=== PATIENT | male | born 1970 | race African-American/Black ===

== ENCOUNTER 2019-08-15 13:04 | Inpatient (IN) | payer SELFPAY ==
--- NOTE | 2019-08-15 13:44 | CT ---
CT HEAD WITHOUT CONTRAST: Date: 08/15/19 INDICATION: Stroke alert. Aphasia. Right arm weakness. FINDINGS: There are no comparison studies. FINDINGS: There is a focal area of high attenuation involving the head of the caudate on the right which measur es approximately 1.0 cm. Hounsfield units are recorded in the 60 range. This would be consistent with an acute hematoma. There is abnormal lucency seen in the left frontal lobe cortex extending to the central sulcus consis tent with cytotoxic edema and subacute cortical infarct. There are focal areas of low attenuation involving the deep white matter of the frontal lobes which c ould represent chronic ischemic change. Acute lacunar infarcts cannot be excluded. The paranasal sinuses and mastoids are clear. IMPRESSION: 1. No evidence of acute hemorrhage involving the head of the caudate on the right. 2. Abnormal decreased attenuation involving the cortex and subcortical region of left frontal lobe e xtending to the central sulcus consistent with subacute infarct. There is a second area of more prono unced lucency involving the left superior parietal lobe cortex probably abutting the central sulcus i n the postcentral region suggesting a subacute parietal lobe cortical infarct. 3. There are lucencies seen in the deep white matter of both frontal lobe which could represent welcome wagon host/hostess katja ischemic change or areas of lacunar infarcts. Recommend further evaluation with MRI to better define the areas of infarct. Findings relayed to Dr. Domínguez. CODE CR. POS: [facility]
--- NOTE | 2019-08-15 13:45 | RAD ---
PORTABLE CHEST: Date: 08/15/19 HISTORY: Stroke symptoms. FINDINGS: Heart size and mediastinum are within normal limits. Lungs are clear of any infiltrates. No significa nt bony findings. IMPRESSION: No active intrathoracic disease. POS: [facility]
[2019-08-15] MEDS ORDERED: Labetalol HCl 100 MG/20 ML VIAL SLOW IVP PRN (14:01)
[2019-08-15] MEDS ORDERED: Docusate 100 MG CAP PO PRN (14:01)
[2019-08-15] MEDS ORDERED: Acetaminophen 650 MG Suppository PR PRN (14:01)
[2019-08-15] MEDS ORDERED: Morphine 2 MG/ML SYRINGE SLOW IVP PRN (14:01)
[2019-08-15] MEDS ORDERED: Morphine 4 MG/ML VIAL SLOW IVP PRN (14:01)
[2019-08-15] MEDS ORDERED: diphenhydrAMINE 50 MG/ML VIAL IVP PRN (14:01)
[2019-08-15] MEDS ORDERED: diphenhydrAMINE 50 MG CAP PO PRN (14:01)
[2019-08-15] MEDS ORDERED: Ondansetron PF 4 MG/2 ML Vial IVP PRN (14:01)
[2019-08-15 14:07] LABS: #Basophils 0.1 thou/uL (0.0-0.2); #Eosinphils 0.1 thou/uL (0.0-0.7); #Lymphocytes 2.9 thou/uL (1.20-3.40); #Neutrophils 5.2 thou/uL (1.40-6.50); %Basophils 0.7 % (0.0-1.0); %Eosinophils 0.7 % (0.0-10.0); %Lymphocytes 31.3 % (21.0-51.0); %Monocytes 10.9 % (0.0-10.0); %Neutrophils 56.4 % (42.0-75.0); Mean Corpuscular HGB CONC 33.7 g/dL (32.0-36.0); Mean Corpuscular Hemoglobin 29.6 pg (27.0-31.0); Mean Corpuscular Volume 87.6 fL (78.0-98.0); Platelet Count 301 thou/uL (130-400); RBC Distribution Width 13.9 % (11.5-14.5); Red Blood Cell (RBC) Count 5.76 mill/uL (4.70-6.10); White Blood Cell (WBC) Count 9.3 thou/uL (4.8-10.8)
[2019-08-15 14:30] LABS: ALT (SGPT) 8 U/L (8-55); AST (SGOT) 17 U/L (5-34); Albumin 4.1 g/dL (3.5-5.0); Alkaline Phosphatase 76 U/L (40-110); Anion Gap 13 mmol/L (10-20); BUN (Urea Nitrogen) 5 mg/dL (8.9-20.6); Bilirubin, Total 0.5 mg/dL (0.2-1.2); Calc. Creatinine Clearance 0 mL/min (70-130); Calcium 9.9 mg/dL (7.8-10.44); Carbon Dioxide 29 mmol/L (22-29); Chloride 101 mmol/L (98-107); Estimated GFR-MDRD 77; Globulin 3.5 g/dL (2.4-3.5); Glucose 78 mg/dL (70-105); Potassium 3.6 mmol/L (3.5-5.1); Protein, Total 7.6 g/dL (6.0-8.3); Sodium 139 mmol/L (136-145)
[2019-08-15 14:47] LABS: CKMB 2.4 ng/mL (0-6.6)
[2019-08-15 15:13] LABS: INR-International Normal Ratio 0.9; Prothrombin Time 12.5 SEC (12.0-14.7)
[2019-08-15] MEDS: Sodium Chloride 0.9% 1,000 ML IV SCH (15:21)
[2019-08-15] MEDS: niCARdipine 25 MG in Sodium Chloride 0.9% 250 ML 240 ML IVPB SCH ×2 (15:22→20:41)
[2019-08-15] MEDS: niMODipine 30 MG CAP PO SCH ×2 (17:27→21:00)
[2019-08-15] MEDS: Pantoprazole 40 MG VIAL IVP SCH (21:00)
[2019-08-15] MEDS: Famotidine 20 MG TAB PO SCH (21:00)
[2019-08-15] MEDS ORDERED: niCARdipine 50 MG in Sodium Chloride 0.9% 250 ML 230 ML IVPB SCH (21:45)
[2019-08-15] MEDS ORDERED: Acetaminophen/Codeine 30-300mg Tablet PO PRN (21:47)
[2019-08-15] MEDS: Acetaminophen 325 MG TAB PO PRN (21:50)
--- NOTE | 2019-08-15 22:51 | CT ---
CT HEAD WITHOUT IV CONTRAST COMPARISON: 08/15/2019 HISTORY: Decreasing neuro status. Intraparenchymal hemorrhage. TECHNIQUE: Axial CT imaging at 5 mm intervals from vertex through skull base without contrast FINDINGS: The small focal area of increased density related to parenchymal hemorrhage in the region of the body of the right caudate is again seen measuring 12 mm. Previous measurement was 11 mm. Differences in measurement may be related to slice selection and angle of the gantry. No new intraparenchymal or ext ra-axial hemorrhage is identified. Previously noted low-attenuation area within the posterior left frontal lobe is again seen slightly l arger in size may related to evolutionary changes in infarction in the posterior division of the left middle cerebral artery. There is effacement of the cerebral sulci in this region, findings are m ost compatible with a subacute infarction. There is no midline shift present. There is mild effacement of the occipital horn left lateral ventri martell due to edema in the posterior left frontal lobe. No other interval change. IMPRESSION: 1. Stable small precarinal hematoma in the right caudate. 2. Persistent low-attenuation area in the posterior left frontal lobe which is mildly larger in size compared to prior exam likely related to evolutionary changes in a subacute infarction in the posterior division of the left middle cerebral artery territory. There is persistent edema and sulcal effacement as well as mild mass effect on the occipital horn left lateral ventricle. MRI may be helpful for further delineation of the degree of infarction.
--- NOTE | 2019-08-15 23:08 | CON ---
DATE OF CONSULTATION: PRIMARY CARE PHYSICIAN: The patient currently does not have a primary care physician. REASON FOR CONSULTATION: Aid in medical management. REASON FOR ADMISSION: Right-sided weakness and intracranial hemorrhage. HISTORY OF PRESENT ILLNESS: The history of present illness is very limited as the patient has significant aphasia and can answer primarily yes no questions. His family has since left the hospital. Mr. Carballo was in his usual state of health until yesterday or earlier today that is when he started having sudden weakness in his right upper extremity as well as right leg. Apparently, he has been having headache off and on for the last several days according to ER notes. He denies any chest pain through yes no questioning and no shortness of breath, no nausea, no vomiting, no leg pain or swelling. When he was evaluated in the ER, he was found to have an intracranial hemorrhage as well as areas that appear like an ischemic infarct as well. The patient has been admitted by the Neurosurgery team into the ICU where he has been placed on a Cardene drip. REVIEW OF SYSTEMS: An adequate review of systems is unobtainable due to the patient's aphasia. PAST MEDICAL HISTORY: Negative. PAST SURGICAL HISTORY: No surgeries. ALLERGIES: NO KNOWN DRUG ALLERGIES. SOCIAL HISTORY: The patient is a smoker of about a pack a day. Also drinks occasionally. FAMILY HISTORY: Significant for hypertension. MEDICATIONS: Prior to admission, none. PHYSICAL EXAMINATION: GENERAL: The patient is alert and oriented. He appears to be in no acute distress. He is sitting up in the bed. VITAL SIGNS: On admission, his blood pressure was 184/110, heart rate 85, respiratory rate of 18, and he was afebrile. HEENT: Pupils are equal, round, and reactive. Extraocular muscles are intact. Sclerae anicteric. Throat, no erythema, no exudates. NECK: No adenopathy, no bruits. LUNGS: Clear to auscultation. There is no wheezing, no rales, no rhonchi. CARDIOVASCULAR: He has a normal S1, S2. No S3 or S4. He does have a grade 2/6 systolic murmur. ABDOMEN: Soft. It is nontender, nondistended. Positive for bowel sounds. No rebound. No guarding. No organomegaly. EXTREMITIES: There is no clubbing, cyanosis. No edema. NEUROLOGIC: He has significant weakness in the right upper extremity. He is unable to lift it significantly against gravity. He has an extremely weak facilities director strength in the right leg, it is also weak, but he can lift it against gravity, but it is much weaker than that of the left and he has significant aphasia and difficulty with word finding and some evidence of fluent aphasia. LABORATORY DATA: Sodium is 139, potassium 3.6, chloride is 101, CO2 is 29, BUN of 5, creatinine 1.21, glucose is 78. Troponin is less than 0.039. White blood cell count is 9.3, hemoglobin 17, hematocrit is 50.4, and platelet count is 301. INR is 0.09. IMAGING: CT scan once again showed possible hemorrhage in the right caudate and a left frontal lobe cortex, acute ischemic infarct. ASSESSMENT: This is a pleasant 49-year-old gentleman with a hemorrhagic as well as ischemic infarct. He has been admitted to the ICU and we have been asked to help with medical management. It appears as if his major chronic medical illness is hypertension, which it appears as if it has not been treated. I agree with the Ye drip and we can likely introduce a low-dose beta-vicky such as carvedilol in the a.m. and consider transitioning the nimodipine to amlodipine. We will also get a lipid panel, hemoglobin A1c, echocardiogram and carotid Dopplers. Otherwise, we will continue as per Neurosurgery recommendations. Job ID: [id number]
[2019-08-16] MEDS: niMODipine 30 MG CAP PO SCH ×6 (01:21→23:18)
[2019-08-16] MEDS: Acetaminophen 325 MG TAB PO PRN (01:22)
--- NOTE | 2019-08-16 03:33 | HP ---
REASON FOR EVALUATION: The patient admitted from the Emergency Department with right-sided weakness and speech difficulty. HISTORY OF PRESENT ILLNESS: Mr. Carballo is a 49-year-old gentleman with a history of TIA within the last three months, who comes to the Emergency Department with right-sided weakness and speech difficulty. This time it is not clearing up. The onset was abrupt today. The patient denies any pain. The left side is working well. He communicates in a halting fashion and cannot give a full history on his own. Since admission, nursing reports further weakness in the right arm - now unable to lift it. PAST MEDICAL HISTORY: Hypertension, previous transient ischemic event. PAST SURGICAL HISTORY: None is reported. ALLERGIES: NO KNOWN DRUG ALLERGIES. CURRENT MEDICATIONS: None. FAMILY HISTORY: The patient's four children were healthy according to his . No heritable diseases. SOCIAL HISTORY: Family reports alcohol use daily and smoking. His smoking is about one pack per day. REVIEW OF SYSTEMS: Review of symptoms otherwise unobtainable. PHYSICAL EXAMINATION: I saw Claude Carballo in his ICU room. VITAL SIGNS: Current vitals reveal a temperature of 98.5 degrees Fahrenheit and blood pressure of 135/67. GENERAL: As I entered the room, Mr. Carballo is awake. He has good speech comprehension. He is dysphasic with an expressive more so than a receptive deficit. Attempts to get a phrase or two out that are appropriate. Other times he cannot find the correct word. He makes some paraphasic errors. His cranial nerves are working well. He has weakness especially in the arm and hand (good tone, involuntary motion, but no purposeful motion of right arm) as well as the lower face greater than the leg on the right side. Good sensation in the legs. He says his sensation in the right arm is decreased compared to the left. The face seems to be symmetrically sensate. IMAGING STUDIES: I reviewed imaging and followup CT imaging of the brain. This revealed a 1 cm oval area of hemorrhage in the right caudate head unrelated to his new deficit. There is hypodensity in the left MCA distribution as well, which is an ischemic stroke. IMPRESSION: Ischemic stroke, left hemisphere, tiny hemorrhagic lesion, right caudate head. Neurosurgery team was consulted for the hemorrhagic lesion, which is asymptomatic. Given his stuttering neurologic deficit involving the right side of the body, I will loosen the blood pressure restrictions and have a target between 130 and 160. Unfortunately, he is not a candidate for thrombolytic agent given the hemorrhage. I will defer to Neurology about regarding workup of his carotid arteries and his heart valves for sources of continued ischemic insults. We will repeat the scan in the morning if the hemorrhagic lesion has no different then we will transfer Mr. Carballo to the care of the Medical and Neurology teams. Job ID: [id number] MTDD
[2019-08-16] MEDS: Sodium Chloride 0.9% 1,000 ML IV SCH ×2 (04:00→17:12)
[2019-08-16 04:10] LABS: Hemoglobin A1c 5.5 % (4.0-6.0)
[2019-08-16 04:12] LABS: #Basophils 0.1 thou/uL (0.0-0.2); #Eosinphils 0.1 thou/uL (0.0-0.7); #Lymphocytes 2.7 thou/uL (1.20-3.40); #Neutrophils 5.5 thou/uL (1.40-6.50); %Basophils 0.6 % (0.0-1.0); %Eosinophils 0.9 % (0.0-10.0); %Lymphocytes 28.9 % (21.0-51.0); %Monocytes 10.5 % (0.0-10.0); %Neutrophils 59.1 % (42.0-75.0); Hemoglobin 15.5 g/dL (14.0-18.0); Mean Corpuscular HGB CONC 33.7 g/dL (32.0-36.0); Mean Corpuscular Hemoglobin 29.6 pg (27.0-31.0); Mean Corpuscular Volume 87.6 fL (78.0-98.0); Platelet Count 301 thou/uL (130-400); RBC Distribution Width 13.7 % (11.5-14.5); Red Blood Cell (RBC) Count 5.25 mill/uL (4.70-6.10); White Blood Cell (WBC) Count 9.3 thou/uL (4.8-10.8)
[2019-08-16 04:29] LABS: Anion Gap 9 mmol/L (10-20); BUN (Urea Nitrogen) 5 mg/dL (8.9-20.6); Calc. Creatinine Clearance 78 mL/min (70-130); Calcium 9.4 mg/dL (7.8-10.44); Carbon Dioxide 28 mmol/L (22-29); Cardiac Risk 3.9 (Less than 4.5); Chloride 107 mmol/L (98-107); Cholesterol 151 mg/dl (< 200 Desired); Estimated GFR-MDRD 90; Glucose 99 mg/dL (70-105); HDL Cholesterol 39 mg/dL (>60 Neg Risk); LDL Cholesterol, Calculated 99 mg/dL; Potassium 3.3 mmol/L (3.5-5.1); Sodium 141 mmol/L (136-145); Triglycerides 64 mg/dL (Less than 150)
[2019-08-16 07:29] LABS: Alcohol Less than 10 mg/dL (Less than 10); Salicylate Less than 8.0 mg/dL (15.0-30.0)
--- NOTE | 2019-08-16 08:27 | PRG ---
DATE OF SERVICE: 08/16/2019 I saw Claude Carballo in the ICU this morning. I saw him yesterday after some weakness developed to the right upper extremity. I am seeing him this morning and he feels the same weakness that he did yesterday evening. A third CT scan has been done and I have reviewed it. Mr. Carballo complains difficulty with speech and right hemiparesis, much of the same as yesterday. Among the vital signs, I see 98.8 as the highest temperature recorded. The blood pressures have ranged between 110-130s. On examination, Mr. Carballo has an expressive dysphasia. He has arm and lower face weakness greater than leg weakness on the right side. These are stable from my examination yesterday evening. There is decreased sensation on the right compared to the left as well. I reviewed CT imaging of the brain. The 1 cm hyperdense area in the caudate head on the right side is stable. This hemorrhage has not increased in its size since his evaluation in the emergency department yesterday. The hypodensities on the left hemisphere are maturing. This is a MCA distribution stroke, which he suffered. Neurology is offering guidance on the ischemic portion of the disease and working him up to prevent of any future strokes. His hemorrhage makes him less of a candidate for any blood thinners. If absolutely necessary, baby aspirin could be started. I would recommend keeping the blood pressure between 130 and 160 in case there is a fixed stenotic lesion in the left MCA distribution on the left side and we have to perfuse it to prevent more brain loss. Overall, Mr. Carballo does not need any neurosurgical intervention. The hemorrhage is the least symptomatic of his problems and he will not require invasive management thereof. The Neurology and Medical team can manage his ischemic strokes without the input of Neurosurgery. We will sign off. Job ID: [id number] MTDD
[2019-08-16] MEDS: Famotidine 20 MG TAB PO SCH ×2 (08:45→23:18)
[2019-08-16] MEDS: Pantoprazole 40 MG VIAL IVP SCH ×2 (08:45→23:18)
--- NOTE | 2019-08-16 08:48 | CT ---
PRELIMINARY REPORT/[facility]/EMERGENCY AFTER HOURS PROCEDURE: PROCEDURE: CT Head without Contrast . HISTORY: Follow-up subdural. TECHNIQUE: Axial images were performed without the administration of IV contrast with or without mult iplanar reformations . COMPARISON: None . FINDINGS: 6 x 9 mm sub-ependymal or interventricular hemorrhage anterior horn RIGHT lateral ventricle. 3.7 cm area of decreased attenuation consistent with edema involving LEFT temporal and insular lobe e xtending up to the parietal lobe could represent subacute infarct, cerebritis, or area of parenchymal contusion.. No other intracranial hemorrhage, mass, or acute stroke. No midline shift. No hydrocephalus. Mild periventricular decreased attenuation could represent white matter disease or old microischemic changes. No acute skull or scalp abnormality. Visualized sinuses and mastoids are clear. IMPRESSION: Subcentimeter subependymal or interventricular hemorrhage RIGHT anterior horn lateral ventricle. Edema LEFT cerebrum with differential above. Periventricular old microischemic changes versus white matter disease. ELECTRONICALLY SIGNED BY: Arturo Lopez MD Aug 16, 2019 5:15:15 AM INTAKE NURSE This report is intended for review by the ordering physician only, in accordance of law. If you recei ve this report in error, please call [facility] at [phone]. FINAL REPORT HEAD CT WITHOUT CONTRAST: Date: 08/16/19 COMPARISON: 08/15/19. HISTORY: Status post craniotomy. FINDINGS/IMPRESSION: Stable right intraventricular/subependymal hemorrhage, which also involves the right caudate nucleus. No new areas of parenchymal hemorrhage appreciated. There are continued evolutionary changes involvi ng a subacute left MCA distribution infarction. Hyperattenuation of the left M1 segment is noted. This report is in agreement with the initial report by [facility]. POS: [facility]
--- NOTE | 2019-08-16 08:51 | ULT ---
BILATERAL CAROTID DUPLEX ULTRASOUND: HISTORY: Stroke TECHNIQUE: Grayscale, imaging of the right carotid was performed. FINDINGS: Incomplete images of the right common carotid artery performed. The remainder the carotid and vertebr al arteries cannot be assessed due to patient refusal. IMPRESSION: Incomplete examination due to patient refusal.
[2019-08-16] MEDS: Carvedilol 3.125 MG TAB PO SCH ×2 (09:23→17:11)
--- NOTE | 2019-08-16 10:01 | CON ---
DATE OF CONSULTATION: HISTORY OF PRESENT ILLNESS: Mr. Carballo is a 49-year-old male. He says he has hypertension. He presented with right arm weakness and dysarthria. He has had a TIA in the past. He says he knew he had blood pressure issues, but would not take any medicine for that. FAMILY HISTORY: Negative for lung disease in early age. SOCIAL HISTORY: He is a daily drinker. Daily smoker, pack a day. REVIEW OF SYSTEMS: Otherwise negative. He has not regained any of his right upper extremity strength. PHYSICAL EXAMINATION: VITAL SIGNS: Heart rate 60, blood pressure 140/80, respiratory rate is 20, oximetry is 97. HEAD AND NECK: Unremarkable. LUNGS: Clear. HEART: Regular rhythm. S1 and S2 are normal. ABDOMEN: Soft and nontender. EXTREMITIES: Without clubbing, cyanosis, or edema. DIAGNOSTIC STUDIES: Carotid Dopplers were done. Apparently, the patient refused to complete the study. IMPRESSION: CVA with dysarthria and right upper extremity paresis. He is not complying with the workup. CT imaging reviewed by Dr. Cody showed an oval area of hemorrhage in the right caudate head and left middle cerebral artery distribution changes consistent with a thrombotic event. He is protecting his airway adequately at this point in time. If Neurosurgery agrees, he could probably be transferred out of the Critical Care Unit to the Stroke Unit. His medical compliance will likely be an issue in the future based on his behavior in the hospital. Job ID: [id number] 70 minute consult with 50% of time spent on unit coordinating care [facility]
[2019-08-16 10:53] LABS: Amphetamine Not Detected (NotDetected); Barbiturates Screen Not Detected (NotDetected); Benzodiazepine Screen Not Detected (NotDetected); Cocaine Metabolite Screen Not Detected (NotDetected); Medtox Control Line Valid? VALID (VALID); Medtox Reader # READER 4; Methadone Not Detected (NotDetected); Methamphetamine Not Detected (NotDetected); Opiate Screen Not Detected (NotDetected); Oxycodone Screen Not Detected (NotDetected); Phencyclidine (PCP) Not Detected (NotDetected); THC/Cannabinoid Screen Not Detected (NotDetected); Tricyclic Screen Not Detected (NotDetected)
--- NOTE | 2019-08-16 12:15 | CON ---
DATE OF TELEMEDICINE CONSULTATION: 08/16/2019 CHIEF COMPLAINT: Difficulty with speaking. HISTORY OF PRESENT ILLNESS: History was given by his . The patient normally has migraine headaches every six months with photophobia, phonophobia, and he used to throw up initially not anymore. This is mostly a bifrontal headache. Three days before this incident, he had migraine, which continued and did not subside. He could not make a sentence yesterday, so she brought him to the hospital. The patient has been under stress because his got a job and he has not, and he is trying to get a job. He also has weakness on the right side along with some numbness. PREVIOUS MEDICAL HISTORY: Positive for hypertension and migraines. PREVIOUS SURGICAL HISTORY: None. FAMILY HISTORY: He has one brother and a sister, and they do not know their health issues. Mother at 60 from cancer. Father in his 60s from a stroke. SOCIAL HISTORY: He drinks. He used to be a heavy drinker for 19 years. He used to drink 30 pack per day. Now, he has been drinking five beers per day for the last three months. He smokes 1 pack a day for 40 years. He is unemployed and he was around [employer] for 10 years. REVIEW OF SYSTEMS: Unable to obtain due to the aphasia. LABORATORY DATA: His current lab workup; white count 9.3, hemoglobin 15.5, hematocrit 46, and platelet count 301. Chemistry; sodium 141, potassium 3.3, chloride 107, bicarb 28, BUN 5, and creatinine 1.06. Hemoglobin A1c is 5.5. Cholesterol and lipid profile within normal limits. CT of the head showed right-sided small basal ganglia bleed about 3.6 x 9 mm subependymal or intraventricular hemorrhage, anterior horn right lateral ventricle is the size of the bleed and on the left side, he has a 3.7 cm area of decreased attenuation consistent with edema involving left temporal and insular lobe extending to the parietal lobe, could be a subacute infarct cerebritis or area of parenchymal contusion. MEDICATIONS: Noted per chart. PHYSICAL EXAMINATION: VITAL SIGNS: Temperature 98 degrees, heart rate 56, blood pressure 145/73, and respiratory rate is 16. GENERAL APPEARANCE: Well-built, well-nourished man, who is aphasic, unable to talk. CHEST: Clear vesicular breathing. CARDIOVASCULAR: S1 and S2 heard. No murmurs. ABDOMEN: Soft. NEUROLOGIC: Higher intellectual functions, he is unable to talk due to aphasia , but he is cooperative, able to follow commands. Cranial nerves; pupils 4 mm, reactive to light. He has left-sided facial droop. Tongue is midline. Normal elevation of palate. Normal hearing bilaterally. Speech, expressive aphasia. Motor exam, bulk normal. Tone normal. Strength 5/5 on the left side. On the right side, he had 0/5 strength in the right upper extremity. In the right lower extremity, he had 4/5 strength for flexors. Extensors were 3/5. Deep tendon reflexes 3+ throughout. Sensory exam, he had numbness of the right face, arm, and leg. Cerebellar, unable to evaluate on the right side due to presence of weakness. IMPRESSION: The patient is a 49-year-old man, who presents with a small intraventricular hemorrhage on the right side and likely left MCA distribution stroke. At this time, he is waiting for his MRI. His carotid Doppler study was completed and his carotid Dopplers do not show any atherosclerosis, but he has mild 50% to 69% stenosis of the left common carotid artery. Diagnosis is most consistent with stroke and intracerebral hemorrhage. Treatment recommendations, please complete stroke workup including echocardiogram and I will request a CT angio of the head and neck to understand the location of his stroke. This is most likely a left middle cerebral artery distribution stroke, but the patient also has a hemorrhage, which creates a difficulty with antiplatelet agents. RECOMMENDATIONS: Please wait for resolution of the bleed prior to starting antiplatelet agents. He will probably benefit with the low-dose aspirin. We will follow up the patient again tomorrow. Job ID: [id number] [facility]
[2019-08-16 12:17] VITALS: BMI 21.6
--- NOTE | 2019-08-16 12:44 | PDOC.HOSPP ---
- Subjective Encounter Date: 08/16/19 Encounter Time: 09:30 Subjective: awake, is eating ice cream, moves his left extremities and right leg, is unable to move/lift right UE has difficulty speaking/finding words at bedside - Objective Vital Signs & Weight: Vital Signs (12 hours) Temp Pulse Pulse BP BP Pulse Ox Pulse Ox 08/16/19 11:00 65 68 134/76 137/89 98 08/16/19 08:00 98 08/16/19 07:00 98.3 F 08/16/19 04:00 98.4 F Pulse Ox 08/16/19 11:00 97 08/16/19 08:00 08/16/19 07:00 08/16/19 04:00 Weight Admit Weight 146 lb Weight 146 lb 9.718 oz Most Recent Monitor Data Heart Rate from ECG 62 NIBP 151/89 NIBP BP-Mean 109 Respiration from ECG 18 SpO2 98 I&O: 08/15/19 08/16/19 08/17/19 06:59 06:59 06:59 Intake Total 2128.1 880 Output Total 3915 950 Balance -1786.9 -70 Result Diagrams: 08/16/19 03:35 08/16/19 03:35 Hospitalist ROS - Medication Medications: Active Medications Generic Name Dose Route Start Last Admin Trade Name Fredanny PRN Reason Stop Dose Admin Acetaminophen 650 mg 08/15/19 14:01 08/16/19 01:22 Tylenol PO 650 mg Q4H PRN Administration Headache/Fever Or Mild Pain Carvedilol 3.125 mg 08/16/19 08:00 08/16/19 09:23 Coreg PO 3.125 mg BID-WM LEIDY Administration Famotidine 20 mg 08/15/19 21:00 08/16/19 08:45 Pepcid PO 20 mg Q12HR LEIDY Administration Sodium Chloride 1,000 mls @ 75 mls/hr 08/15/19 14:15 08/16/19 04:00 Normal Saline 0.9% IV 1,000 mls .[id number] LEIDY Administration Nicardipine HCl 50 mg/ Sodium 250 mls @ 25 mls/hr 08/15/19 21:45 08/16/19 01: 22 Chloride IVPB 250 mls INF LEIDY Administration Protocol 5 MG/HR Nimodipine 60 mg 08/15/19 17:00 08/16/19 12:06 Nimodipine PO 60 mg Q4HR LEIDY Administration Pantoprazole Sodium 40 mg 08/15/19 21:00 08/16/19 08:45 Protonix IVP 40 mg Q12HR LEIDY Administration - Exam General Appearance: awake alert Eye: PERRL, anicteric sclera ENT: no oropharyngeal lesions, moist mucosa Neck: supple, no JVD Heart: RRR, murmur present Respiratory: no wheezes, no rales Gastrointestinal: soft, non-tender, non-distended, normal bowel sounds Extremities: no cyanosis, no edema Neurological: speech deficit Neurological - other findings: right hemiparesis, Hosp A/P (1) Acute CVA (cerebrovascular accident) Code(s): I63.9 - CEREBRAL INFARCTION, UNSPECIFIED Status: Acute (2) ICH (intracerebral hemorrhage) Code(s): I61.9 - NONTRAUMATIC INTRACEREBRAL HEMORRHAGE, UNSPECIFIED Status: Acute Qualifiers: Intracerebral hemorrhage etiology: nontraumatic Cerebral hemorrhage location: cerebral hemisphere, subcortical portion Laterality: right Qualified Code(s): I61.0 - Nontraumatic intracerebral hemorrhage in hemisphere, subcortical (3) HTN (hypertension) Code(s): I10 - ESSENTIAL (PRIMARY) HYPERTENSION Status: Chronic Qualifiers: Hypertension type: essential hypertension Qualified Code(s): I10 - Essential (primary) hypertension (4) Dyslipidemia Code(s): E78.5 - HYPERLIPIDEMIA, UNSPECIFIED Status: Chronic (5) Tobacco abuse Code(s): Z72.0 - TOBACCO USE Status: Chronic (6) Alcohol abuse Code(s): F10.10 - ALCOHOL ABUSE, UNCOMPLICATED Status: Chronic - Plan is on coreg, pepcid/protonix, nimodepine, gentle iv hydration december to medical floor has left MCA cva with right hemiparesis with complete plegia of Right UE, has strength of around 3-4/[address] shows right caudate bleed-stable echo, has murmur+ uds is -ve hemo/neurostable with no worsoning since admission december care to hospitalist and stroke unit Appreciate help from all consults
--- NOTE | 2019-08-16 13:53 | CT ---
CTA of the head/neck with IV contrast and 3-D reformatted imaging. DATE: 08/16/2019 11:43 AM HISTORY: CVA COMPARISON: None FINDINGS: Right: CCA: No significant stenosis ICA:Mild scattered calcification without high-grade stenosis MCA:No significant stenosis. RC:Diminutive A1 segment with right A2 segment receiving supply via the anterior communicating arter y. REMOTE ENCODING OPERATIONS SUPERVISOR:No significant stenosis. LEFT: CCA: No significant stenosis ICA:Mild scattered calcification without high-grade stenosis MCA:There is incomplete contrast opacification of the posterior sylvian branch of the left MCA. The l eft M1 is patent RC:No significant stenosis. REMOTE ENCODING OPERATIONS SUPERVISOR:No significant stenosis. Vertebrobasilar System: Left Vertebral:Proximal left vertebral is not well visualized for comment. Otherwise, imaged aspects reveal no high-grade stenosis. Right Vertebral:No significant stenosis. Basilar:No significant stenosis. Interval temporal evolution of subacute infarction of the posterior division left MCA territory. This is superimposed on multifocal white matter hypoattenuation compatible with microvascular ischemic disease. Hyperdensity of the right caudate nucleus is redemonstrated, without significant interval si ze increase. IMPRESSION: Diminutive contrast of the left MCA posterior sylvian branch. This corresponds to the vascular territ ory of evolving, subacute infarction.
[2019-08-17] MEDS: niMODipine 30 MG CAP PO SCH ×6 (02:03→22:10)
[2019-08-17] MEDS: hydrALAZINE 20 MG/ML VIAL SLOW IVP PRN ×2 (02:10→11:28)
[2019-08-17] MEDS: Sodium Chloride 0.9% 1,000 ML IV SCH ×2 (04:29→22:10)
[2019-08-17 07:56] LABS: Anion Gap 11 mmol/L (10-20); BUN (Urea Nitrogen) 5 mg/dL (8.9-20.6); Calc. Creatinine Clearance 85 mL/min (70-130); Calcium 9.3 mg/dL (7.8-10.44); Carbon Dioxide 26 mmol/L (22-29); Chloride 105 mmol/L (98-107); Estimated GFR-MDRD Greater than 90; Glucose 84 mg/dL (70-105); Potassium 3.5 mmol/L (3.5-5.1); Sodium 138 mmol/L (136-145)
[2019-08-17] MEDS: Carvedilol 3.125 MG TAB PO SCH ×2 (09:19→17:42)
[2019-08-17] MEDS: Famotidine 20 MG TAB PO SCH ×2 (09:20→22:10)
[2019-08-17] MEDS: Pantoprazole 40 MG VIAL IVP SCH ×2 (09:21→22:10)
--- NOTE | 2019-08-17 12:16 | PDOC.HOSPP ---
- Subjective Encounter Date: 08/17/19 Encounter Time: 09:00 Subjective: is moving his right UE a bit this am, freely moves right sided extremities speech is a bit fluent today no headache or nausea ate his breakfast - Objective Vital Signs & Weight: Vital Signs (12 hours) Temp Pulse Resp BP BP Pulse Ox 08/17/19 11:49 98.2 F 53 L 16 167/88 H 97 08/17/19 11:28 51 L 167/88 H 08/17/19 09:14 142/75 H 97 08/17/19 08:00 98.3 F 61 16 142/75 H 97 08/17/19 04:21 97.8 F 61 16 156/85 H 98 08/17/19 04:00 156/85 H 08/17/19 02:10 82 08/17/19 02:06 183/101 H Weight Admit Weight 146 lb Weight 146 lb 9.718 oz Most Recent Monitor Data Heart Rate from ECG 55 NIBP 129/69 NIBP BP-Mean 89 Respiration from ECG 19 SpO2 97 I&O: 08/16/19 08/17/19 08/18/19 06:59 06:59 06:59 Intake Total 2128.1 1821 Output Total 3915 2220 Balance -1786.9 -399 Result Diagrams: 08/16/19 03:35 08/17/19 07:28 Hospitalist ROS - Medication Medications: Active Medications Generic Name Dose Route Start Last Admin Trade Name Freq PRN Reason Stop Dose Admin Acetaminophen 650 mg 08/15/19 14:01 08/16/19 01:22 Tylenol PO 650 mg Q4H PRN Administration Headache/Fever Or Mild Pain Carvedilol 3.125 mg 08/16/19 08:00 08/17/19 09:19 Coreg PO 3.125 mg BID-WM LEIDY Administration Famotidine 20 mg 08/15/19 21:00 08/17/19 09:20 Pepcid PO 20 mg Q12HR LEIDY Administration Hydralazine HCl 5 mg 08/15/19 14:01 08/17/19 11:28 Apresoline SLOW IVP 5 mg Q15MIN PRN Administration SBP > 160 mmHg Sodium Chloride 1,000 mls @ 75 mls/hr 08/15/19 14:15 08/17/19 04:29 Normal Saline 0.9% IV 1,000 mls .[id number] LEIDY Administration Nicardipine HCl 50 mg/ Sodium 250 mls @ 25 mls/hr 08/15/19 21:45 08/16/19 01: 22 Chloride IVPB 250 mls INF LEIDY Administration Protocol 5 MG/HR Nimodipine 60 mg 08/15/19 17:00 08/17/19 09:20 Nimodipine PO 60 mg Q4HR LEIDY Administration Pantoprazole Sodium 40 mg 08/15/19 21:00 08/17/19 09:21 Protonix IVP 40 mg Q12HR LEIDY Administration - Exam General Appearance: awake alert Eye: PERRL, anicteric sclera ENT: no oropharyngeal lesions, moist mucosa Neck: supple, no JVD Heart: no murmur, no gallops Respiratory: no wheezes, no rales Gastrointestinal: soft, non-tender, non-distended, normal bowel sounds Extremities: no cyanosis, no edema Neurological: speech deficit Neurological - other findings: right hemiparesis improving Psychiatric: normal affect, A&O x 3 Hosp A/P (1) Acute CVA (cerebrovascular accident) Code(s): I63.9 - CEREBRAL INFARCTION, UNSPECIFIED Status: Acute (2) ICH (intracerebral hemorrhage) Code(s): I61.9 - NONTRAUMATIC INTRACEREBRAL HEMORRHAGE, UNSPECIFIED Status: Acute Qualifiers: Intracerebral hemorrhage etiology: nontraumatic Cerebral hemorrhage location: cerebral hemisphere, subcortical portion Laterality: right Qualified Code(s): I61.0 - Nontraumatic intracerebral hemorrhage in hemisphere, subcortical (3) HTN (hypertension) Code(s): I10 - ESSENTIAL (PRIMARY) HYPERTENSION Status: Chronic Qualifiers: Hypertension type: essential hypertension Qualified Code(s): I10 - Essential (primary) hypertension (4) Dyslipidemia Code(s): E78.5 - HYPERLIPIDEMIA, UNSPECIFIED Status: Chronic (5) Tobacco abuse Code(s): Z72.0 - TOBACCO USE Status: Chronic (6) Alcohol abuse Code(s): F10.10 - ALCOHOL ABUSE, UNCOMPLICATED Status: Chronic - Plan is on coreg, pepcid/protonix, nimodepine, gentle iv hydration (may dc if eating and drinking well orally) has left MCA cva with right hemiparesis, has strength of around 2-3/5 in right UE and 3-4/[address] shows right caudate bleed-stable echo shows normal ef, mod tr uds is -ve hemo/neurostable, neuro deficits are rapidly improving Appreciate help from all consults PT/OT/Speech, will need rehab if approved (not sure if he has any insurance)
[2019-08-18] MEDS: niMODipine 30 MG CAP PO SCH ×3 (00:25→08:53)
[2019-08-18] MEDS: hydrALAZINE 20 MG/ML VIAL SLOW IVP PRN ×5 (00:25→23:08)
[2019-08-18] MEDS: Famotidine 20 MG TAB PO SCH ×2 (08:53→22:13)
[2019-08-18] MEDS: Carvedilol 3.125 MG TAB PO SCH ×2 (08:53→17:12)
[2019-08-18] MEDS: Pantoprazole 40 MG VIAL IVP SCH (08:54)
[2019-08-18] MEDS: Sodium Chloride 0.9% 1,000 ML IV SCH (11:43)
--- NOTE | 2019-08-18 12:22 | PDOC.HOSPP ---
- Subjective Encounter Date: 08/18/19 Encounter Time: 10:15 Subjective: awake, oriented well was not able to ambulate due to balance issues per PT is eating well, no headache or sob - Objective Vital Signs & Weight: Vital Signs (12 hours) Temp Pulse Pulse Pulse Pulse Resp BP 08/18/19 11:48 98.5 F 54 L 16 08/18/19 09:27 58 L 58 L 60 150/80 H 08/18/19 07:58 98.6 F 59 L 16 08/18/19 04:00 98.3 F 69 16 08/18/19 01:09 08/18/19 00:25 66 BP BP BP Pulse Ox 08/18/19 11:48 140/72 98 08/18/19 09:27 139/73 159/77 H 08/18/19 07:58 139/85 93 L 08/18/19 04:00 158/83 H 96 08/18/19 01:09 155/80 H 08/18/19 00:25 Weight Admit Weight 146 lb Weight 146 lb 9.718 oz Most Recent Monitor Data Heart Rate from ECG 55 NIBP 129/69 NIBP BP-Mean 89 Respiration from ECG 19 SpO2 97 I&O: 08/17/19 08/18/19 08/19/19 06:59 06:59 06:59 Intake Total 1821 3014 300 Output Total 5630 9835 7716 Balance -208 -668 -830 Result Diagrams: 08/16/19 03:35 08/17/19 07:28 Hospitalist ROS - Medication Medications: Active Medications Generic Name Dose Route Start Last Admin Trade Name Freq PRN Reason Stop Dose Admin Acetaminophen 650 mg 08/15/19 14:01 08/16/19 01:22 Tylenol PO 650 mg Q4H PRN Administration Headache/Fever Or Mild Pain Carvedilol 3.125 mg 08/16/19 08:00 08/18/19 08:53 Coreg PO 3.125 mg BID-WM LEIDY Administration Famotidine 20 mg 08/15/19 21:00 08/18/19 08:53 Pepcid PO 20 mg Q12HR LEIDY Administration Hydralazine HCl 5 mg 08/15/19 14:01 08/18/19 00:25 Apresoline SLOW IVP 5 mg Q15MIN PRN Administration SBP > 160 mmHg Labetalol HCl 10 mg 08/15/19 14:01 08/17/19 14:49 Normodyne SLOW IVP 10 mg Q15MIN PRN Administration SBP > 140 mmHg - Exam General Appearance: awake alert Eye: PERRL, anicteric sclera ENT: no oropharyngeal lesions, moist mucosa Neck: supple, no JVD Heart: RRR, no murmur Respiratory: no wheezes, no rales Gastrointestinal: soft, non-tender, non-distended, normal bowel sounds Extremities: no cyanosis, no edema Neurological: speech deficit Neurological - other findings: right hemiparesis Psychiatric: A&O x 3 Hosp A/P (1) Acute CVA (cerebrovascular accident) Code(s): I63.9 - CEREBRAL INFARCTION, UNSPECIFIED Status: Acute (2) ICH (intracerebral hemorrhage) Code(s): I61.9 - NONTRAUMATIC INTRACEREBRAL HEMORRHAGE, UNSPECIFIED Status: Acute Qualifiers: Intracerebral hemorrhage etiology: nontraumatic Cerebral hemorrhage location: cerebral hemisphere, subcortical portion Laterality: right Qualified Code(s): I61.0 - Nontraumatic intracerebral hemorrhage in hemisphere, subcortical (3) HTN (hypertension) Code(s): I10 - ESSENTIAL (PRIMARY) HYPERTENSION Status: Chronic Qualifiers: Hypertension type: essential hypertension Qualified Code(s): I10 - Essential (primary) hypertension (4) Dyslipidemia Code(s): E78.5 - HYPERLIPIDEMIA, UNSPECIFIED Status: Chronic (5) Tobacco abuse Code(s): Z72.0 - TOBACCO USE Status: Chronic (6) Alcohol abuse Code(s): F10.10 - ALCOHOL ABUSE, UNCOMPLICATED Status: Chronic - Plan is on coreg, pepcid/protonix, amlodipine, hydralazine bid has left MCA cva with right hemiparesis, has strength of around 2-3/5 in right UE and 3-4/[address] shows right caudate bleed-stable echo shows normal ef, mod tr uds is -ve hemo/neurostable, neuro deficits are improving Appreciate help from all consults PT/OT/Speech, will need rehab if approved (not sure if he has any insurance) or swing bed, d/w case mgmt
[2019-08-18] MEDS ORDERED: Amlodipine 10 MG TAB PO SCH (12:45)
[2019-08-18] MEDS: hydrALAZINE 25 MG TAB PO SCH (22:13)
[2019-08-19] MEDS: hydrALAZINE 20 MG/ML VIAL SLOW IVP PRN ×2 (04:27→21:24)
[2019-08-19] MEDS: Carvedilol 3.125 MG TAB PO SCH ×2 (08:35→17:54)
[2019-08-19] MEDS: Amlodipine 10 MG TAB PO SCH (08:35)
[2019-08-19] MEDS: hydrALAZINE 25 MG TAB PO SCH ×2 (08:35→20:05)
[2019-08-19] MEDS: Famotidine 20 MG TAB PO SCH ×2 (08:35→20:06)
--- NOTE | 2019-08-19 15:05 | PDOC.HOSPP ---
- Subjective Encounter Date: 08/19/19 Encounter Time: 10:00 Subjective: feels better still has not been able to ambulate, has issues with balancing his right side - Objective Vital Signs & Weight: Vital Signs (12 hours) Temp Pulse Resp BP BP Pulse Ox 08/19/19 12:15 161/86 H 08/19/19 11:17 98.2 F 63 16 161/86 H 95 08/19/19 08:35 165/90 H 08/19/19 08:20 165/90 H 08/19/19 07:36 98.3 F 65 18 165/90 H 97 08/19/19 04:27 66 175/93 H 08/19/19 04:00 97.9 F 80 18 161/104 H 94 L Weight Admit Weight 146 lb Weight 146 lb 9.718 oz Most Recent Monitor Data Heart Rate from ECG 55 NIBP 129/69 NIBP BP-Mean 89 Respiration from ECG 19 SpO2 97 I&O: 08/18/19 08/19/19 08/20/19 06:59 06:59 06:59 Intake Total 3019 1397 600 Output Total 6483 5282 1500 Balance -773 -1728 -900 Result Diagrams: 08/16/19 03:35 08/17/19 07:28 Hospitalist ROS - Medication Medications: Active Medications Generic Name Dose Route Start Last Admin Trade Name Freq PRN Reason Stop Dose Admin Acetaminophen 650 mg 08/15/19 14:01 08/16/19 01:22 Tylenol PO 650 mg Q4H PRN Administration Headache/Fever Or Mild Pain Amlodipine Besylate 10 mg 08/19/19 09:00 08/19/19 08:35 Norvasc PO 10 mg DAILY LEIDY Administration Carvedilol 3.125 mg 08/16/19 08:00 08/19/19 08:35 Coreg PO 3.125 mg BID-WM LEIDY Administration Famotidine 20 mg 08/15/19 21:00 08/19/19 08:35 Pepcid PO 20 mg Q12HR LEIDY Administration Hydralazine HCl 5 mg 08/15/19 14:01 08/19/19 04:27 Apresoline SLOW IVP 5 mg Q15MIN PRN Administration SBP > 160 mmHg Hydralazine HCl 25 mg 08/18/19 21:00 08/19/19 08:35 Apresoline PO 25 mg BID LEIDY Administration Labetalol HCl 10 mg 08/15/19 14:01 08/17/19 14:49 Normodyne SLOW IVP 10 mg Q15MIN PRN Administration SBP > 140 mmHg Pantoprazole Sodium 40 mg 08/19/19 09:00 08/19/19 08:35 Protonix PO 40 mg DAILY LEIDY Administration Sodium Chloride 10 ml 08/15/19 14:01 08/18/19 23:10 Flush - Normal Saline IVF 10 ml PRN PRN Administration Saline Flush - Exam General Appearance: awake alert Eye: PERRL, anicteric sclera ENT: no oropharyngeal lesions, moist mucosa Neck: supple, no JVD Heart: RRR, no murmur Respiratory: no wheezes, no rales Gastrointestinal: soft, non-tender, non-distended, normal bowel sounds Extremities: no cyanosis, no edema Neurological - other findings: right hemiparesis, mod aphasia/word finding difficulty Psychiatric: normal affect, A&O x 3 Hosp A/P (1) Acute CVA (cerebrovascular accident) Code(s): I63.9 - CEREBRAL INFARCTION, UNSPECIFIED Status: Acute (2) ICH (intracerebral hemorrhage) Code(s): I61.9 - NONTRAUMATIC INTRACEREBRAL HEMORRHAGE, UNSPECIFIED Status: Acute Qualifiers: Intracerebral hemorrhage etiology: nontraumatic Cerebral hemorrhage location: cerebral hemisphere, subcortical portion Laterality: right Qualified Code(s): I61.0 - Nontraumatic intracerebral hemorrhage in hemisphere, subcortical (3) HTN (hypertension) Code(s): I10 - ESSENTIAL (PRIMARY) HYPERTENSION Status: Chronic Qualifiers: Hypertension type: essential hypertension Qualified Code(s): I10 - Essential (primary) hypertension (4) Dyslipidemia Code(s): E78.5 - HYPERLIPIDEMIA, UNSPECIFIED Status: Chronic (5) Tobacco abuse Code(s): Z72.0 - TOBACCO USE Status: Chronic (6) Alcohol abuse Code(s): F10.10 - ALCOHOL ABUSE, UNCOMPLICATED Status: Chronic - Plan is on coreg, pepcid/protonix, amlodipine, increase hydralazine to tid has left MCA cva with right hemiparesis, has strength of around 2-3/5 in right UE and 3-4/[address] shows right caudate bleed-stable echo shows normal ef, mod tr uds is -ve hemo/neurostable, neuro deficits are improving Appreciate help from all consults PT/OT/Speech, will need rehab if approved (not sure if he has any insurance) or swing bed, d/w case mgmt [place] [facility] medicaid pending? if approved
[2019-08-19] MEDS: Atorvastatin Calcium 40 MG TAB PO SCH (20:06)
[2019-08-20] MEDS: hydrALAZINE 20 MG/ML VIAL SLOW IVP PRN ×2 (01:57→03:00)
[2019-08-20] MEDS: Famotidine 20 MG TAB PO SCH ×2 (09:10→20:53)
[2019-08-20] MEDS: Amlodipine 10 MG TAB PO SCH (09:11)
[2019-08-20] MEDS: hydrALAZINE 25 MG TAB PO SCH ×3 (09:11→20:53)
[2019-08-20] MEDS: Carvedilol 3.125 MG TAB PO SCH ×2 (09:12→17:16)
[2019-08-20] MEDS: Atorvastatin Calcium 40 MG TAB PO SCH (20:54)
--- NOTE | 2019-08-20 22:25 | PDOC.HOSPP ---
- Subjective Encounter Date: 08/20/19 Subjective: Doing well. NO complaints. - Objective Vital Signs & Weight: Vital Signs (12 hours) Temp Pulse Pulse Pulse Resp BP BP 08/20/19 19:15 98.9 F 61 18 08/20/19 16:34 154/80 H 08/20/19 15:36 98.7 F 08/20/19 15:35 64 154/80 H 08/20/19 12:07 150/82 H 08/20/19 11:43 98.6 F 61 16 08/20/19 10:33 65 65 159/79 H BP BP Pulse Ox 08/20/19 19:15 160/77 H 98 08/20/19 16:34 08/20/19 15:36 99 08/20/19 15:35 08/20/19 12:07 08/20/19 11:43 150/82 H 97 08/20/19 10:33 138/78 Weight Admit Weight 146 lb Weight 146 lb 9.718 oz Most Recent Monitor Data Heart Rate from ECG 55 NIBP 129/69 NIBP BP-Mean 89 Respiration from ECG 19 SpO2 97 I&O: 08/19/19 08/20/19 08/21/19 06:59 06:59 06:59 Intake Total 5106 627 6695 Output Total 3125 3400 2175 Balance -1728 -2500 1225 Result Diagrams: 08/16/19 03:35 08/17/19 07:28 Hospitalist ROS - Medication Medications: Active Medications Generic Name Dose Route Start Last Admin Trade Name Freq PRN Reason Stop Dose Admin Acetaminophen 650 mg 08/15/19 14:01 08/16/19 01:22 Tylenol PO 650 mg Q4H PRN Administration Headache/Fever Or Mild Pain Amlodipine Besylate 10 mg 08/19/19 09:00 08/20/19 09:11 Norvasc PO 10 mg DAILY LEIDY Administration Atorvastatin Calcium 40 mg 08/19/19 21:00 08/20/19 20:54 Lipitor PO 40 mg HS LEIDY Administration Carvedilol 3.125 mg 08/16/19 08:00 08/20/19 17:16 Coreg PO 3.125 mg BID-WM LEIDY Administration Famotidine 20 mg 08/15/19 21:00 08/20/19 20:53 Pepcid PO 20 mg Q12HR LEIDY Administration Hydralazine HCl 5 mg 12/23/19 14:01 08/20/19 03:00 Apresoline SLOW IVP 5 mg Q15MIN PRN Administration SBP > 160 mmHg Hydralazine HCl 25 mg 08/19/19 21:00 08/20/19 20:53 Apresoline PO 25 mg TID LEIDY Administration Labetalol HCl 10 mg 08/15/19 14:01 08/17/19 14:49 Normodyne SLOW IVP 10 mg Q15MIN PRN Administration SBP > 140 mmHg Pantoprazole Sodium 40 mg 08/19/19 09:00 08/20/19 09:10 Protonix PO 40 mg DAILY LEIDY Administration Sodium Chloride 10 ml 08/15/19 14:01 08/20/19 20:54 Flush - Normal Saline IVF 10 ml PRN PRN Administration Saline Flush - Exam General Appearance: NAD, awake alert Heart: RRR, no murmur, no gallops, no rubs, normal peripheral pulses Respiratory: CTAB, no wheezes, no rales, no ronchi, normal chest expansion, no tachypnea, normal percussion Gastrointestinal: soft, non-tender, non-distended, normal bowel sounds, no palpable masses, no hepatomegaly, no splenomegaly, no bruit Extremities: no cyanosis, no clubbing, no edema Neurological: cranial nerve grossly intact Neurological - other findings: Right UE paralysis distally. Modest prox movement. LE weak. Hosp A/P (1) Acute CVA (cerebrovascular accident) Code(s): I63.9 - CEREBRAL INFARCTION, UNSPECIFIED Status: Acute (2) ICH (intracerebral hemorrhage) Code(s): I61.9 - NONTRAUMATIC INTRACEREBRAL HEMORRHAGE, UNSPECIFIED Status: Acute Qualifiers: Intracerebral hemorrhage etiology: nontraumatic Cerebral hemorrhage location: cerebral hemisphere, subcortical portion Laterality: right Qualified Code(s): I61.0 - Nontraumatic intracerebral hemorrhage in hemisphere, subcortical (3) Alcohol abuse Code(s): F10.10 - ALCOHOL ABUSE, UNCOMPLICATED Status: Chronic (4) Dyslipidemia Code(s): E78.5 - HYPERLIPIDEMIA, UNSPECIFIED Status: Chronic (5) HTN (hypertension) Code(s): I10 - ESSENTIAL (PRIMARY) HYPERTENSION Status: Chronic Qualifiers: Hypertension type: essential hypertension Qualified Code(s): I10 - Essential (primary) hypertension (6) Tobacco abuse Code(s): Z72.0 - TOBACCO USE Status: Chronic - Plan Stable medically. Awaiting placement in rehab.
[2019-08-21] MEDS: Amlodipine 10 MG TAB PO SCH (08:23)
[2019-08-21] MEDS: Carvedilol 3.125 MG TAB PO SCH ×2 (08:24→16:31)
[2019-08-21] MEDS: Famotidine 20 MG TAB PO SCH ×2 (08:24→20:34)
[2019-08-21] MEDS: hydrALAZINE 25 MG TAB PO SCH ×3 (08:25→20:33)
--- NOTE | 2019-08-21 12:01 | PDOC.HOSPP ---
- Subjective Encounter Date: 08/21/19 Encounter Time: 12:00 Subjective: Doing ok. Denies needs or complaints. - Objective Vital Signs & Weight: Vital Signs (12 hours) Temp Pulse Resp BP BP Pulse Ox 08/21/19 11:51 97.8 F 65 14 154/90 H 98 08/21/19 08:25 59 L 156/91 H 08/21/19 08:23 59 L 156/91 H 08/21/19 08:22 97 08/21/19 07:26 98.2 F 59 L 16 156/91 H 97 08/21/19 04:00 98.8 F 65 18 159/92 H 97 Weight Admit Weight 146 lb Weight 146 lb 9.718 oz Most Recent Monitor Data Heart Rate from ECG 55 NIBP 129/69 NIBP BP-Mean 89 Respiration from ECG 19 SpO2 97 I&O: 08/20/19 08/21/19 08/22/19 06:59 06:59 06:59 Intake Total 900 3400 Output Total 3400 2175 Balance -2500 1225 Result Diagrams: 08/16/19 03:35 08/17/19 07:28 Hospitalist ROS - Medication Medications: Active Medications Generic Name Dose Route Start Last Admin Trade Name Freq PRN Reason Stop Dose Admin Acetaminophen 650 mg 08/15/19 14:01 08/16/19 01:22 Tylenol PO 650 mg Q4H PRN Administration Headache/Fever Or Mild Pain Amlodipine Besylate 10 mg 08/19/19 09:00 08/21/19 08:23 Norvasc PO 10 mg DAILY LEIDY Administration Atorvastatin Calcium 40 mg 08/19/19 21:00 08/20/19 20:54 Lipitor PO 40 mg HS LEIDY Administration Carvedilol 3.125 mg 08/16/19 08:00 08/21/19 08:24 Coreg PO 3.125 mg BID-WM LEIDY Administration Famotidine 20 mg 08/15/19 21:00 08/21/19 08:24 Pepcid PO 20 mg Q12HR LEIDY Administration Hydralazine HCl 5 mg 08/15/19 14:01 08/20/19 03:00 Apresoline SLOW IVP 5 mg Q15MIN PRN Administration SBP > 160 mmHg Labetalol HCl 10 mg 08/15/19 14:01 08/17/19 14:49 Normodyne SLOW IVP 10 mg Q15MIN PRN Administration SBP > 140 mmHg Pantoprazole Sodium 40 mg 08/19/19 09:00 08/21/19 08:25 Protonix PO 40 mg DAILY LEIDY Administration Sodium Chloride 10 ml 08/15/19 14:01 08/21/19 08:26 Flush - Normal Saline IVF 10 ml PRN PRN Administration Saline Flush - Exam General Appearance: NAD, awake alert Heart: RRR, no murmur, no gallops, no rubs, normal peripheral pulses Respiratory: CTAB, no wheezes, no rales, no ronchi, normal chest expansion, no tachypnea, normal percussion Gastrointestinal: soft, non-tender, non-distended, normal bowel sounds, no palpable masses, no hepatomegaly, no splenomegaly, no bruit Extremities: no cyanosis, no clubbing, no edema Neurological - other findings: Has good movement of RLE, prox RUE. R hand paralysis. Expressive dysphasia Psychiatric: normal affect Hosp A/P (1) Acute CVA (cerebrovascular accident) Code(s): I63.9 - CEREBRAL INFARCTION, UNSPECIFIED Status: Acute (2) ICH (intracerebral hemorrhage) Code(s): I61.9 - NONTRAUMATIC INTRACEREBRAL HEMORRHAGE, UNSPECIFIED Status: Acute Qualifiers: Intracerebral hemorrhage etiology: nontraumatic Cerebral hemorrhage location: cerebral hemisphere, subcortical portion Laterality: right Qualified Code(s): I61.0 - Nontraumatic intracerebral hemorrhage in hemisphere, subcortical (3) Alcohol abuse Code(s): F10.10 - ALCOHOL ABUSE, UNCOMPLICATED Status: Chronic (4) Dyslipidemia Code(s): E78.5 - HYPERLIPIDEMIA, UNSPECIFIED Status: Chronic (5) HTN (hypertension) Code(s): I10 - ESSENTIAL (PRIMARY) HYPERTENSION Status: Chronic Qualifiers: Hypertension type: essential hypertension Qualified Code(s): I10 - Essential (primary) hypertension (6) Tobacco abuse Code(s): Z72.0 - TOBACCO USE Status: Chronic - Plan Stable medically. Awaiting placement in rehab. BP is still higher than desired. Increase the Hydralazine to 50mg tid. No anti-platelet therapy yet due to the small bleed into the infarct. Continue statin and BP control. CM working placement.
[2019-08-21] MEDS: Atorvastatin Calcium 40 MG TAB PO SCH (20:33)
[2019-08-22] MEDS: hydrALAZINE 20 MG/ML VIAL SLOW IVP PRN ×2 (00:05→00:20)
[2019-08-22] MEDS: Amlodipine 10 MG TAB PO SCH (08:47)
[2019-08-22] MEDS: Carvedilol 3.125 MG TAB PO SCH ×2 (08:51→16:20)
[2019-08-22] MEDS: hydrALAZINE 25 MG TAB PO SCH ×3 (08:52→20:18)
[2019-08-22] MEDS: Famotidine 20 MG TAB PO SCH ×2 (08:53→20:18)
[2019-08-22] MEDS: Atorvastatin Calcium 40 MG TAB PO SCH (20:18)
--- NOTE | 2019-08-22 22:21 | PDOC.HOSPP ---
- Subjective Subjective: Doing ok. Up with PT. - Objective Vital Signs & Weight: Vital Signs (12 hours) Temp Pulse Resp BP BP Pulse Ox 08/22/19 20:00 98.6 F 68 16 152/82 H 98 08/22/19 15:48 98.1 F 67 16 154/82 H 98 08/22/19 15:02 65 148/74 H 08/22/19 11:45 97.8 F 67 13 129/70 96 Weight Admit Weight 146 lb Weight 146 lb 9.718 oz Most Recent Monitor Data Heart Rate from ECG 55 NIBP 129/69 NIBP BP-Mean 89 Respiration from ECG 19 SpO2 97 I&O: 08/21/19 08/22/19 08/23/19 06:59 06:59 06:59 Intake Total 3400 2600 Output Total 2175 3100 Balance 1225 -500 Result Diagrams: 08/16/19 03:35 08/17/19 07:28 Hospitalist ROS - Medication Medications: Active Medications Generic Name Dose Route Start Last Admin Trade Name Freq PRN Reason Stop Dose Admin Acetaminophen 650 mg 08/15/19 14:01 08/16/19 01:22 Tylenol PO 650 mg Q4H PRN Administration Headache/Fever Or Mild Pain Amlodipine Besylate 10 mg 08/19/19 09:00 08/22/19 08:47 Norvasc PO 10 mg DAILY LEIDY Administration Atorvastatin Calcium 40 mg 08/19/19 21:00 08/22/19 20:18 Lipitor PO 40 mg HS LEIDY Administration Carvedilol 3.125 mg 08/16/19 08:00 08/22/19 16:20 Coreg PO 3.125 mg BID-WM LEIDY Administration Famotidine 20 mg 08/15/19 21:00 08/22/19 20:18 Pepcid PO 20 mg Q12HR LEIDY Administration Hydralazine HCl 5 mg 08/15/19 14:01 08/22/19 00:20 Apresoline SLOW IVP 5 mg Q15MIN PRN Administration SBP > 160 mmHg Hydralazine HCl 50 mg 08/21/19 15:00 08/22/19 20:18 Apresoline PO 50 mg TID LEIDY Administration Labetalol HCl 10 mg 08/15/19 14:01 08/17/19 14:49 Normodyne SLOW IVP 10 mg Q15MIN PRN Administration SBP > 140 mmHg Sodium Chloride 10 ml 08/15/19 14:01 08/22/19 08:55 Flush - Normal Saline IVF 10 ml PRN PRN Administration Saline Flush - Exam General Appearance: NAD, awake alert Neurological - other findings: Walking with PT with walker and arm rest. Hosp A/P (1) Acute CVA (cerebrovascular accident) Code(s): I63.9 - CEREBRAL INFARCTION, UNSPECIFIED Status: Acute (2) ICH (intracerebral hemorrhage) Code(s): I61.9 - NONTRAUMATIC INTRACEREBRAL HEMORRHAGE, UNSPECIFIED Status: Acute Qualifiers: Intracerebral hemorrhage etiology: nontraumatic Cerebral hemorrhage location: cerebral hemisphere, subcortical portion Laterality: right Qualified Code(s): I61.0 - Nontraumatic intracerebral hemorrhage in hemisphere, subcortical (3) Alcohol abuse Code(s): F10.10 - ALCOHOL ABUSE, UNCOMPLICATED Status: Chronic (4) Dyslipidemia Code(s): E78.5 - HYPERLIPIDEMIA, UNSPECIFIED Status: Chronic (5) HTN (hypertension) Code(s): I10 - ESSENTIAL (PRIMARY) HYPERTENSION Status: Chronic Qualifiers: Hypertension type: essential hypertension Qualified Code(s): I10 - Essential (primary) hypertension (6) Tobacco abuse Code(s): Z72.0 - TOBACCO USE Status: Chronic - Plan Stable medically. Awaiting placement in rehab. Continue to manage BP. Increased the Hydralazine to 50mg tid. No anti-platelet therapy yet due to the small bleed into the infarct. Continue statin and BP control. CM working placement.
[2019-08-23] MEDS: Famotidine 20 MG TAB PO SCH ×2 (08:37→20:53)
[2019-08-23] MEDS: hydrALAZINE 25 MG TAB PO SCH ×3 (08:37→20:54)
[2019-08-23] MEDS: Carvedilol 3.125 MG TAB PO SCH ×2 (08:38→16:55)
[2019-08-23] MEDS: Amlodipine 10 MG TAB PO SCH (08:38)
[2019-08-23] MEDS: Nicotine 7 MG PATCH TD SCH (15:20)
--- NOTE | 2019-08-23 17:17 | PDOC.HOSPP ---
- Subjective Subjective: Doing ok. Does not talk much. - Objective Vital Signs & Weight: Vital Signs (12 hours) Temp Pulse Pulse Pulse Resp BP BP 08/23/19 15:31 98.1 F 61 16 08/23/19 15:20 59 L 164/89 H 08/23/19 11:42 97.9 F 66 16 08/23/19 09:03 80 70 148/74 H 08/23/19 08:38 55 L 150/85 H 08/23/19 08:37 55 L 150/85 H 08/23/19 07:47 98.1 F 57 L 16 BP BP Pulse Ox 08/23/19 15:31 158/99 H 98 08/23/19 15:20 08/23/19 11:42 139/79 98 08/23/19 09:03 150/82 H 08/23/19 08:38 98 08/23/19 08:37 08/23/19 07:47 150/85 H 98 Weight Admit Weight 146 lb Weight 146 lb 9.718 oz Most Recent Monitor Data Heart Rate from ECG 55 NIBP 129/69 NIBP BP-Mean 89 Respiration from ECG 19 SpO2 97 I&O: 08/22/19 08/23/19 08/24/19 06:59 06:59 06:59 Intake Total 4610 900 Output Total 5900 1900 Balance -1290 -1000 Result Diagrams: 08/16/19 03:35 08/17/19 07:28 Hospitalist ROS - Medication Medications: Active Medications Generic Name Dose Route Start Last Admin Trade Name Freq PRN Reason Stop Dose Admin Acetaminophen 650 mg 08/15/19 14:01 08/16/19 01:22 Tylenol PO 650 mg Q4H PRN Administration Headache/Fever Or Mild Pain Amlodipine Besylate 10 mg 08/19/19 09:00 08/23/19 08:38 Norvasc PO 10 mg DAILY LEIDY Administration Atorvastatin Calcium 40 mg 08/19/19 21:00 08/22/19 20:18 Lipitor PO 40 mg HS LEIDY Administration Carvedilol 3.125 mg 08/16/19 08:00 08/23/19 16:55 Coreg PO 3.125 mg BID-WM LEIDY Administration Famotidine 20 mg 08/15/19 21:00 08/23/19 08:37 Pepcid PO 20 mg Q12HR LEIDY Administration Hydralazine HCl 5 mg 08/15/19 14:01 08/22/19 00:20 Apresoline SLOW IVP 5 mg Q15MIN PRN Administration SBP > 160 mmHg Hydralazine HCl 50 mg 08/21/19 15:00 08/23/19 15:20 Apresoline PO 50 mg TID LEIDY Administration Labetalol HCl 10 mg 08/15/19 14:01 08/17/19 14:49 Normodyne SLOW IVP 10 mg Q15MIN PRN Administration SBP > 140 mmHg Nicotine 7 mg 08/23/19 14:00 08/23/19 15:20 Nicoderm Patch TD 7 mg 1400 LEIDY Administration Sodium Chloride 10 ml 08/15/19 14:01 08/22/19 08:55 Flush - Normal Saline IVF 10 ml PRN PRN Administration Saline Flush - Exam General Appearance: NAD, awake alert Heart: RRR, no murmur, no gallops, no rubs, normal peripheral pulses Respiratory: CTAB, no wheezes, no rales, no ronchi, normal chest expansion, no tachypnea, normal percussion Extremities: no cyanosis Hosp A/P (1) Acute CVA (cerebrovascular accident) Code(s): I63.9 - CEREBRAL INFARCTION, UNSPECIFIED Status: Acute (2) ICH (intracerebral hemorrhage) Code(s): I61.9 - NONTRAUMATIC INTRACEREBRAL HEMORRHAGE, UNSPECIFIED Status: Acute Qualifiers: Intracerebral hemorrhage etiology: nontraumatic Cerebral hemorrhage location: cerebral hemisphere, subcortical portion Laterality: right Qualified Code(s): I61.0 - Nontraumatic intracerebral hemorrhage in hemisphere, subcortical (3) Alcohol abuse Code(s): F10.10 - ALCOHOL ABUSE, UNCOMPLICATED Status: Chronic (4) Dyslipidemia Code(s): E78.5 - HYPERLIPIDEMIA, UNSPECIFIED Status: Chronic (5) HTN (hypertension) Code(s): I10 - ESSENTIAL (PRIMARY) HYPERTENSION Status: Chronic Qualifiers: Hypertension type: essential hypertension Qualified Code(s): I10 - Essential (primary) hypertension (6) Tobacco abuse Code(s): Z72.0 - TOBACCO USE Status: Chronic - Plan Stable medically. Awaiting placement in rehab. Continue to manage BP. Increased the Hydralazine to 50mg tid. No anti-platelet therapy yet due to the small bleed into the infarct. Continue statin and BP control. CM working placement. Nicotine patch.
[2019-08-23] MEDS: Atorvastatin Calcium 40 MG TAB PO SCH (20:53)
[2019-08-24] MEDS: Carvedilol 3.125 MG TAB PO SCH ×2 (09:13→16:50)
[2019-08-24] MEDS: hydrALAZINE 25 MG TAB PO SCH ×2 (09:13→16:50)
[2019-08-24] MEDS: Famotidine 20 MG TAB PO SCH ×2 (09:13→20:58)
[2019-08-24] MEDS: Amlodipine 10 MG TAB PO SCH (09:13)
--- NOTE | 2019-08-24 09:23 | PDOC.HOSPP ---
- Subjective Subjective: Feels ok. Denies complaints or needs. - Objective Vital Signs & Weight: Vital Signs (12 hours) Temp Pulse Resp BP BP BP Pulse Ox 08/24/19 09:13 58 L 151/83 H 08/24/19 07:40 98.2 F 58 L 16 151/83 H 97 08/24/19 04:00 98.2 F 61 18 144/81 H 97 08/24/19 00:00 98.4 F 66 16 145/97 H 98 Weight Admit Weight 146 lb Weight 146 lb 9.718 oz Most Recent Monitor Data Heart Rate from ECG 55 NIBP 129/69 NIBP BP-Mean 89 Respiration from ECG 19 SpO2 97 I&O: 08/23/19 08/24/19 08/25/19 06:59 06:59 06:59 Intake Total 4610 2890 Output Total 5900 5275 Balance -3704 -3181 Result Diagrams: 08/16/19 03:35 08/17/19 07:28 Hospitalist ROS - Medication Medications: Active Medications Generic Name Dose Route Start Last Admin Trade Name Freq PRN Reason Stop Dose Admin Acetaminophen 650 mg 08/15/19 14:01 08/16/19 01:22 Tylenol PO 650 mg Q4H PRN Administration Headache/Fever Or Mild Pain Amlodipine Besylate 10 mg 08/19/19 09:00 08/24/19 09:13 Norvasc PO 10 mg DAILY LEIDY Administration Atorvastatin Calcium 40 mg 08/19/19 21:00 08/23/19 20:53 Lipitor PO 40 mg HS LEIDY Administration Carvedilol 3.125 mg 08/16/19 08:00 08/24/19 09:13 Coreg PO 3.125 mg BID-WM LEIDY Administration Famotidine 20 mg 08/15/19 21:00 08/24/19 09:13 Pepcid PO 20 mg Q12HR LEIDY Administration Hydralazine HCl 5 mg 08/15/19 14:01 08/22/19 00:20 Apresoline SLOW IVP 5 mg Q15MIN PRN Administration SBP > 160 mmHg Hydralazine HCl 50 mg 08/21/19 15:00 08/24/19 09:13 Apresoline PO 50 mg TID LEIDY Administration Labetalol HCl 10 mg 08/15/19 14:01 08/17/19 14:49 Normodyne SLOW IVP 10 mg Q15MIN PRN Administration SBP > 140 mmHg Nicotine 7 mg 08/23/19 14:00 08/23/19 15:20 Nicoderm Patch TD 7 mg 1400 LEIDY Administration Sodium Chloride 10 ml 08/15/19 14:01 08/22/19 08:55 Flush - Normal Saline IVF 10 ml PRN PRN Administration Saline Flush - Exam General Appearance: NAD, awake alert Heart: RRR, no murmur, no gallops, no rubs, normal peripheral pulses Respiratory: CTAB, no wheezes, no rales, no ronchi, normal chest expansion, no tachypnea, normal percussion Gastrointestinal: soft, non-tender, non-distended, normal bowel sounds, no palpable masses, no hepatomegaly, no splenomegaly, no bruit Neurological - other findings: Persistent RUE distal paralysis, prox paresis. Minimally verbal. Psychiatric: normal affect Hosp A/P (1) Acute CVA (cerebrovascular accident) Code(s): I63.9 - CEREBRAL INFARCTION, UNSPECIFIED Status: Acute (2) ICH (intracerebral hemorrhage) Code(s): I61.9 - NONTRAUMATIC INTRACEREBRAL HEMORRHAGE, UNSPECIFIED Status: Acute Qualifiers: Intracerebral hemorrhage etiology: nontraumatic Cerebral hemorrhage location: cerebral hemisphere, subcortical portion Laterality: right Qualified Code(s): I61.0 - Nontraumatic intracerebral hemorrhage in hemisphere, subcortical (3) Alcohol abuse Code(s): F10.10 - ALCOHOL ABUSE, UNCOMPLICATED Status: Chronic (4) Dyslipidemia Code(s): E78.5 - HYPERLIPIDEMIA, UNSPECIFIED Status: Chronic (5) HTN (hypertension) Code(s): I10 - ESSENTIAL (PRIMARY) HYPERTENSION Status: Chronic Qualifiers: Hypertension type: essential hypertension Qualified Code(s): I10 - Essential (primary) hypertension (6) Tobacco abuse Code(s): Z72.0 - TOBACCO USE Status: Chronic - Plan Stable medically. Awaiting placement in rehab. Continue to manage BP. Increased the Hydralazine to 50mg tid. Added HCTZ 08/24/19. Max'd on Amlodipine. No anti-platelet therapy yet due to the small bleed into the infarct. Continue statin and BP control. CM working placement. Nicotine patch.
[2019-08-24] MEDS ORDERED: Hydrochlorothiazide 25 MG TAB PO SCH (09:30)
[2019-08-24] MEDS: Nicotine 7 MG PATCH TD SCH (14:15)
[2019-08-24] MEDS: Atorvastatin Calcium 40 MG TAB PO SCH (20:58)
[2019-08-24] MEDS: hydrALAZINE 10 MG TAB PO SCH (20:58)
[2019-08-25] MEDS: Hydrochlorothiazide 25 MG TAB PO SCH (09:45)
[2019-08-25] MEDS: hydrALAZINE 10 MG TAB PO SCH ×3 (09:49→21:27)
[2019-08-25] MEDS: Carvedilol 3.125 MG TAB PO SCH ×2 (09:50→17:25)
[2019-08-25] MEDS: Amlodipine 10 MG TAB PO SCH (09:50)
[2019-08-25] MEDS: Famotidine 20 MG TAB PO SCH ×2 (11:09→21:27)
[2019-08-25] MEDS: Nicotine 7 MG PATCH TD SCH (15:30)
--- NOTE | 2019-08-25 20:43 | PDOC.HOSPP ---
- Subjective Subjective: His speech is improved and he is taking much more today. Feels ok. No complaints. Has a tiny bit of movement in his right hand now. - Objective Vital Signs & Weight: Vital Signs (12 hours) Temp Pulse Resp BP BP Pulse Ox 08/25/19 20:00 98.3 F 70 16 144/81 H 98 08/25/19 15:42 98.4 F 62 16 143/76 H 98 08/25/19 15:33 62 143/76 H 08/25/19 11:15 98.6 F 71 16 135/74 98 08/25/19 09:50 65 142/74 H 08/25/19 09:49 65 142/74 H Weight Admit Weight 146 lb Weight 146 lb 9.718 oz Most Recent Monitor Data Heart Rate from ECG 55 NIBP 129/69 NIBP BP-Mean 89 Respiration from ECG 19 SpO2 97 I&O: 08/24/19 08/25/19 08/26/19 06:59 06:59 06:59 Intake Total 2890 2350 2110 Output Total 9695 2375 1536 Balance -2385 -25 574 Result Diagrams: 08/16/19 03:35 08/17/19 07:28 Hospitalist ROS - Medication Medications: Active Medications Generic Name Dose Route Start Last Admin Trade Name Freq PRN Reason Stop Dose Admin Acetaminophen 650 mg 08/15/19 14:01 08/16/19 01:22 Tylenol PO 650 mg Q4H PRN Administration Headache/Fever Or Mild Pain Amlodipine Besylate 10 mg 08/19/19 09:00 08/25/19 09:50 Norvasc PO 10 mg DAILY LEIDY Administration Atorvastatin Calcium 40 mg 08/19/19 21:00 08/24/19 20:58 Lipitor PO 40 mg HS LEIDY Administration Carvedilol 3.125 mg 08/16/19 08:00 08/25/19 17:25 Coreg PO 3.125 mg BID-WM LEIDY Administration Famotidine 20 mg 08/15/19 21:00 08/25/19 11:09 Pepcid PO 20 mg Q12HR LEIDY Administration Hydralazine HCl 5 mg 08/15/19 14:01 08/22/19 00:20 Apresoline SLOW IVP 5 mg Q15MIN PRN Administration SBP > 160 mmHg Hydralazine HCl 50 mg 08/24/19 21:00 08/25/19 15:33 Apresoline PO 50 mg TID LEIDY Administration Hydrochlorothiazide 25 mg 08/25/19 09:00 08/25/19 09:45 Hydrochlorothiazide PO 25 mg DAILY LEIDY Administration Labetalol HCl 10 mg 08/15/19 14:01 08/17/19 14:49 Normodyne SLOW IVP 10 mg Q15MIN PRN Administration SBP > 140 mmHg Nicotine 7 mg 08/23/19 14:00 08/25/19 15:30 Nicoderm Patch TD 7 mg 1400 LEIDY Administration Sodium Chloride 10 ml 08/15/19 14:01 08/25/19 09:45 Flush - Normal Saline IVF 10 ml PRN PRN Administration Saline Flush - Exam General Appearance: NAD, awake alert Heart: RRR, no murmur, no gallops, no rubs, normal peripheral pulses Respiratory: CTAB, no wheezes, no rales, no ronchi, normal chest expansion, no tachypnea, normal percussion Gastrointestinal: soft, non-tender, non-distended, normal bowel sounds, no palpable masses, no hepatomegaly, no splenomegaly, no bruit Extremities: no cyanosis, no clubbing, no edema Neurological - other findings: Better speech. R hand paresis, but modest movement of fingers Psychiatric: normal affect, normal behavior Hosp A/P (1) Acute CVA (cerebrovascular accident) Code(s): I63.9 - CEREBRAL INFARCTION, UNSPECIFIED Status: Acute (2) ICH (intracerebral hemorrhage) Code(s): I61.9 - NONTRAUMATIC INTRACEREBRAL HEMORRHAGE, UNSPECIFIED Status: Acute Qualifiers: Intracerebral hemorrhage etiology: nontraumatic Cerebral hemorrhage location: cerebral hemisphere, subcortical portion Laterality: right Qualified Code(s): I61.0 - Nontraumatic intracerebral hemorrhage in hemisphere, subcortical (3) Alcohol abuse Code(s): F10.10 - ALCOHOL ABUSE, UNCOMPLICATED Status: Chronic (4) Dyslipidemia Code(s): E78.5 - HYPERLIPIDEMIA, UNSPECIFIED Status: Chronic (5) HTN (hypertension) Code(s): I10 - ESSENTIAL (PRIMARY) HYPERTENSION Status: Chronic Qualifiers: Hypertension type: essential hypertension Qualified Code(s): I10 - Essential (primary) hypertension (6) Tobacco abuse Code(s): Z72.0 - TOBACCO USE Status: Chronic (7) Homelessness Code(s): Z59.0 - HOMELESSNESS Status: Acute - Plan Stable medically. Awaiting placement in rehab. Continue to manage BP. Increased the Hydralazine to 50mg tid. Added HCTZ 08/24/19. Max'd on Amlodipine. No anti-platelet therapy yet due to the small bleed into the infarct. Continue statin and BP control. CM working placement. Nicotine patch. Continue therapy.
[2019-08-25] MEDS: Atorvastatin Calcium 40 MG TAB PO SCH (21:27)
[2019-08-26 07:53] VITALS: TEMP 98.6
[2019-08-26] MEDS: Famotidine 20 MG TAB PO SCH (09:56)
[2019-08-26] MEDS: hydrALAZINE 10 MG TAB PO SCH (09:57)
[2019-08-26] MEDS: Hydrochlorothiazide 25 MG TAB PO SCH (09:57)
[2019-08-26] MEDS: Amlodipine 10 MG TAB PO SCH (09:57)
[2019-08-26] MEDS: Carvedilol 3.125 MG TAB PO SCH (09:58)
[2019-08-26 11:52] VITALS: BP 124/68
[2019-08-26] MEDS: Nicotine 7 MG PATCH TD SCH (13:30)
--- NOTE | 2019-08-26 21:23 | DIS ---
DATE OF ADMISSION: 08/15/2019 DATE OF DISCHARGE: 08/26/2019 DISCHARGE DIAGNOSES: 1. Acute cerebrovascular accident. 2. Intracerebral hemorrhage. 3. History of alcohol abuse. 4. Dyslipidemia. 5. Hypertension. 6. Tobacco abuse. 7. Homelessness. HISTORY OF PRESENT ILLNESS: This patient is a 49-year-old male who presented to the hospital via the emergency department with some right-sided weakness with some intermittent headaches. He was found to have intracranial hemorrhage as well as an acute ischemic infarct. The ischemic infarct was felt to be most likely related to the acute symptoms. He was admitted to the Neurosurgical Service; however, they did not feel he was a candidate for any type of surgical intervention nor was he a candidate for thrombolytics given the area of bleed; therefore, he is admitted with IV Cardene in order to control his blood pressure to the intensive care unit. HOSPITAL COURSE: The patient was maintained on appropriate blood pressure control with Cardene, seen in consultation briefly by Pulmonary Critical Care. He had a CT angio of the head and neck showing diminutive contrast in the left MCA posterior sylvian branch corresponding to the vascular territory of evolving subacute infarction. He had an echocardiogram, which revealed normal ejection fraction of 55% to 60%, moderate concentric LVH, some impaired relaxation with diastolic dysfunction, mild to moderate tricuspid regurgitation, and mildly elevated right ventricular systolic pressures. Carotid Doppler was obtained, which revealed no significant atherosclerotic disease, however, was incomplete exam due to the patient's refusal to continue. The patient did have some expressive aphasia as well as the right-sided weakness consistent with the findings on followup CT scans which showed a stable right intraventricular subependymal hemorrhage which also involved the right caudate nucleus with no new areas of parenchymal hemorrhage and continued evolutionary changes involving the subacute left MCA distribution infarction with hyperattenuation of the left M1 segment being noted. The patient was evaluated by OT, PT, and Speech Therapy and continued to progress. His speech did improve somewhat. He was able to eat adequately. He had persistent paresis in the right lower extremity, paralysis of the right hand, and paresis of the proximal right upper extremity. Once the patient's blood pressure was stabilized and transitioned off IV medications to oral amlodipine and carvedilol and hydrochlorothiazide, he was felt to be stable for discharge. Unfortunately, the patient's homelessness and lack of resources made placement a bit challenging, but ultimately he was able to get acceptance at the [facility] he was on a smoking cessation program with a nicotine patch. PHYSICAL EXAMINATION: VITAL SIGNS: At the time of discharge, temperature is 98.6, pulse 65, respirations 16, O2 saturations 98% on room air, BP 124/68. GENERAL: He is awake and alert, pleasant, cooperative. HEART: Regular rate and rhythm without murmurs. LUNGS: Clear. ABDOMEN: Benign. EXTREMITIES: With no cyanosis, clubbing, or edema. NEUROLOGICAL: Again had some weakness of the right lower extremity, paralysis of the right hand with some movement of the proximal right upper extremity. DISPOSITION: The patient is discharged to the [facility] under the care of Dr. Hernandez. DIET: He will have a heart healthy diet. ACTIVITY: Level is as tolerated. He will be seen by OT, PT, and Speech Therapy. MEDICATIONS: 1. Acetaminophen 650 mg p.o. q.4 hours p.r.n. 2. Amlodipine 10 mg daily. 3. Atorvastatin 40 mg at bedtime. 4. Carvedilol b.i.d. 5. Docusate 100 mg p.o. daily as needed. 6. Hydrochlorothiazide 25 mg daily. 7. Nicotine transdermal patch 7 mg topical q.week. FOLLOWUP: He will be seen at [facility] by Dr. Hernandez and will need to follow up with the PCP subsequent and he can return to the hospital anytime he has the need to do so. TIME SPENT: Total time in discharge activities was 35 minutes. Job ID: [id number]
== END 2019-08-26 13:40 | DRG 64 ==
LOC: ERS 13:04 → CCU 14:56 → 2SE 08-16 13:42
PROVIDERS: ADMIT Neurological Surgery; ATTEND Neurological Surgery
DX: I63.9 Cerebral infarction, unspecified (principal); I61.9 Nontraumatic intracerebral hemorrhage, unspecified; G81.91 Hemiplegia, unspecified affecting right dominant side; E78.5 Hyperlipidemia, unspecified; I10 Essential (primary) hypertension; Z59.0 Homelessness; F17.200 Nicotine dependence, unspecified, uncomplicated; R47.01 Aphasia; Z71.6 Tobacco abuse counseling; R29.706 NIHSS score 6; R47.81 Slurred speech; R47.1 Dysarthria and anarthria; F10.10 Alcohol abuse, uncomplicated
CPT/HCPCS: 36415; 70450; 70496; 70498; 71045; 80048; 80053; 80061; 80306; 80307; 82553; 83036; 84484; 85025; 93005; 93306; 93880; 94760; C9113; J0360; J7050

== ENCOUNTER 2019-11-01 09:31 | Observation (INO) | payer SELFPAY ==
[2019-11-01 10:35] LABS: #Basophils 0.1 thou/uL (0.0-0.2); #Eosinphils 0.1 thou/uL (0.0-0.7); #Lymphocytes 1.8 thou/uL (1.20-3.40); #Monocytes 1.3 thou/uL (0.11-0.59); #Neutrophils 5.6 thou/uL (1.40-6.50); %Basophils 0.6 % (0.0-1.0); %Eosinophils 1.3 % (0.0-10.0); %Lymphocytes 20.2 % (21.0-51.0); %Monocytes 14.8 % (0.0-10.0); %Neutrophils 63.1 % (42.0-75.0); Hemoglobin 13.2 g/dL (14.0-18.0); Mean Corpuscular HGB CONC 33.3 g/dL (32.0-36.0); Mean Corpuscular Hemoglobin 29.2 pg (27.0-31.0); Mean Corpuscular Volume 87.7 fL (78.0-98.0); Mean Platelet Volume 6.5 fL (7.4-10.4); Platelet Count 350 thou/uL (130-400); RBC Distribution Width 13.9 % (11.5-14.5); Red Blood Cell (RBC) Count 4.51 mill/uL (4.70-6.10); White Blood Cell (WBC) Count 8.9 thou/uL (4.8-10.8)
--- NOTE | 2019-11-01 10:38 | CT ---
Exam: Head CT without contrast HISTORY: Right arm weakness, that has since resolved COMPARISON: 08/16/2019 FINDINGS: Hemorrhage: No intraparenchymal hemorrhage or extra-axial hematoma. Brain parenchyma: Encephalomalacia and gliosis due to remote left MCA distribution infarct. Interval resolution of previously noted hemorrhage in the right caudate nucleus. Cortical willis-white matter differentiation is preserved. No midline shift. Basilar cisterns are patent. Minimal white matter hyp odensities due to chronic small vessel ischemic change. Ventricular system: Ventricles and sulci are patent and symmetric. Calvarium: Intact. Sinuses and mastoid air cells: Adequate aeration. IMPRESSION: No acute intracranial process Results of study discussed with Dr. Barger 11/01/2019 10:34 AM code CR
[2019-11-01 10:41] LABS: INR-International Normal Ratio 1.1; PTT 34.1 SEC (22.9-36.1); Prothrombin Time 13.7 SEC (12.0-14.7)
[2019-11-01 10:55] LABS: ALT (SGPT) 20 U/L (8-55); AST (SGOT) 22 U/L (5-34); Albumin 4.1 g/dL (3.5-5.0); Alkaline Phosphatase 56 U/L (40-110); Anion Gap 9 mmol/L (10-20); BUN (Urea Nitrogen) 12 mg/dL (8.9-20.6); Bilirubin, Total 0.7 mg/dL (0.2-1.2); Calc. Creatinine Clearance 0 mL/min (70-130); Calcium 10.2 mg/dL (7.8-10.44); Carbon Dioxide 33 mmol/L (22-29); Chloride 101 mmol/L (98-107); Estimated GFR-MDRD 71; Globulin 3.5 g/dL (2.4-3.5); Glucose 92 mg/dL (70-105); Potassium 3.2 mmol/L (3.5-5.1); Protein, Total 7.6 g/dL (6.0-8.3); Sodium 140 mmol/L (136-145)
[2019-11-01] MEDS ORDERED: Aspirin 325 MG TAB ONE (12:34)
[2019-11-01] MEDS ORDERED: Acetaminophen 325 MG TAB PO PRN (12:55)
--- NOTE | 2019-11-01 14:41 | MRI ---
MRI BRAIN WITHOUT CONTRAST: Date: 11/01/2019 HISTORY: Right arm weakness, TIA. COMPARISON: None. CORRELATION: CT brain from earlier today. FINDINGS: Encephalomalacia and gliosis due to old left MCA infarction is seen. No restricted diffusion is ident ified. The ventricular size is appropriate and the basilar cisterns are patent. Multiple foci of T2 p rolongation in the periventricular white matter consistent with chronic small vessel ischemic disease . No acute hemorrhage, midline shift, or abnormal extra-axial fluid collections are seen. There is he mosiderin deposition in the right caudate nucleus. There is mucosal disease in the paranasal sinuses. IMPRESSION: No evidence of acute intracranial process. POS: TPC
--- NOTE | 2019-11-01 20:57 | HP ---
CHIEF COMPLAINT: Right arm weakness. HISTORY OF PRESENT ILLNESS: Mr. Carballo is a 49-year-old male with past medical history of hypertension, intracranial hemorrhage, dyslipidemia, tobacco abuse, alcohol abuse, presented to the emergency room with right arm weakness that resulted in the patient arrived to the emergency room. The patient was at physical therapy this morning when his right arm went weak. The patient has history of strokes in the past. Workup in the emergency room including CT of the brain, no acute intracranial process. The patient is being admitted to the hospital for further management. PAST MEDICAL HISTORY: As mentioned above in history of present illness. PAST SURGICAL HISTORY: Unknown. The patient is a poor historian. FAMILY HISTORY: Reviewed and noncontributory. SOCIAL HISTORY: The patient drinks every day, less than 5 drinks a day. Currently uses tobacco and smokes cigarettes. ALLERGIES: NO KNOWN ALLERGIES. HOME MEDICATIONS: Please see home medication reconciliation form for updated medications. REVIEW OF SYSTEMS: Review of 14-systems negative except what is mentioned in the history of present illness. PHYSICAL EXAMINATION: GENERAL: The patient is awake and alert, does not appear to be in acute distress. VITAL SIGNS: Blood pressure 136/79, pulse is 56, respiratory rate is 17, and temperature 99.2. HEAD AND NECK: Normocephalic and atraumatic. Neck is supple. No JVD. CHEST: Fair bilateral air entry. HEART: S1 and S2, regular. ABDOMEN: Soft and nontender. Bowel sounds present. NEUROLOGIC: Awake, alert, and oriented. No focal deficits. PSYCH: Unable to assess. EXTREMITIES: No clubbing. No cyanosis. GENITOURINARY: No flank tenderness. No suprapubic tenderness. LABORATORY DATA: Potassium 3.2, otherwise unremarkable. CT of the brain as mentioned above in history of present illness. ASSESSMENT: 1. Transient ischemic attack ? 2. History of strokes including intracranial hemorrhage. 3. Hypertension. 4. Hyperlipidemia. 5. Cigarette smoker. PLAN: 1. Admit. 2. Tele monitoring. 3. Frequent neuro checks. 4. MRI of the brain. 5. Reconcile home medications. 6. DVT prophylaxis appropriate. 7. Expected length of stay at least 1 midnight if the patient is stable and further workup negative. Job ID: [id number]
--- NOTE | 2019-11-02 00:17 | PDOC.EVN ---
Event Note - Event Note Event Note: Nursing called to report seizure like activity. Reports patient Right hand contorted and patient leaned to left side and drooled. Reports HR 120s-130s, Sinus tachycardia. Patient did not bite tongue, no post ictal state. Patient denies any chest pain, heart palpitations. VS stable throughout. Ordered BMP, mag, CBC, UA and nursing communication to get prolactin if witness activity again. Neuro has already been consulted. Discussed case with Dr. Walker.
[2019-11-02 05:08] LABS: #Basophils 0.1 thou/uL (0.0-0.2); #Eosinphils 0.2 thou/uL (0.0-0.7); #Lymphocytes 3.4 thou/uL (1.20-3.40); #Monocytes 1.2 thou/uL (0.11-0.59); #Neutrophils 4.7 thou/uL (1.40-6.50); %Basophils 0.6 % (0.0-1.0); %Eosinophils 2.5 % (0.0-10.0); %Lymphocytes 35.2 % (21.0-51.0); %Monocytes 12.9 % (0.0-10.0); %Neutrophils 48.9 % (42.0-75.0); Hemoglobin 12.1 g/dL (14.0-18.0); Mean Corpuscular HGB CONC 33.2 g/dL (32.0-36.0); Mean Corpuscular Hemoglobin 29.1 pg (27.0-31.0); Mean Corpuscular Volume 87.7 fL (78.0-98.0); Mean Platelet Volume 6.7 fL (7.4-10.4); Platelet Count 331 thou/uL (130-400); RBC Distribution Width 14.1 % (11.5-14.5); Red Blood Cell (RBC) Count 4.17 mill/uL (4.70-6.10); White Blood Cell (WBC) Count 9.6 thou/uL (4.8-10.8)
[2019-11-02 05:23] LABS: Anion Gap 11 mmol/L (10-20); BUN (Urea Nitrogen) 16 mg/dL (8.9-20.6); Calc. Creatinine Clearance 73 mL/min (70-130); Calcium 9.4 mg/dL (7.8-10.44); Carbon Dioxide 28 mmol/L (22-29); Chloride 103 mmol/L (98-107); Cholesterol 106 mg/dl (< 200 Desired); Estimated GFR-MDRD 84; Glucose 98 mg/dL (70-105); HDL Cholesterol 35 mg/dL (>60 Neg Risk); LDL Cholesterol, Calculated 61 mg/dL; Magnesium 1.8 mg/dL (1.6-2.6); Potassium 3.2 mmol/L (3.5-5.1); Sodium 139 mmol/L (136-145); Triglycerides 51 mg/dL (Less than 150)
[2019-11-02 08:44] LABS: Bacteria/HPF None Seen HPF (None Seen); Bilirubin Negative (Negative); Blood, Urine Negative (Negative); Clarity Clear (Clear); Glucose, Urine (Dipstick) Normal (Negative); Leukocyte Negative Leu/uL (Negative); Nitrite Negative (Negative); Protein, Urine (Dipstick) Negative (Neg-Trace); RBC/HPF 0-3 HPF (0-3); Squamous Epithelial None Seen HPF (0-3); Urobilinogen Normal mg/dL (Less than 2); WBC/HPF 0-3 HPF (0-3)
[2019-11-02] MEDS ORDERED: FLU VACC QS2019-20(6MOS UP)/PF 60 MCG/0.5 ML SYRINGE IM ONE (09:00)
[2019-11-02] MEDS: Aspirin 325 mg Enteric Coated Tablet PO SCH (10:33)
[2019-11-02] MEDS ORDERED: Docusate 100 MG CAP PO PRN (11:19)
[2019-11-02] MEDS ORDERED: Potassium Chloride 20 MEQ TAB PO SCH (11:30)
--- NOTE | 2019-11-02 14:05 | PDOC.HOSPP ---
- Subjective Encounter Date: 11/02/19 Encounter Time: 09:30 Subjective: pt has word finding problem, but no focal deficit, speech is normal, last night had ? seizure activity - Objective Vital Signs & Weight: Vital Signs (12 hours) Temp Pulse Pulse Pulse Resp BP BP 11/02/19 13:30 11/02/19 11:13 98.8 F 82 18 11/02/19 08:57 88 78 123/94 H 149/85 H 11/02/19 08:46 99 F 72 16 11/02/19 04:00 98.2 F 65 16 BP BP BP BP Pulse Ox 11/02/19 13:30 139/90 142/91 H 136/78 11/02/19 11:13 125/83 99 11/02/19 08:57 11/02/19 08:46 123/94 H 99 11/02/19 04:00 130/76 100 Weight Weight 143 lb I&O: 11/01/19 11/02/19 11/03/19 06:59 06:59 06:59 Intake Total 420 Output Total 325 Balance -325 420 Result Diagrams: 11/02/19 04:38 11/02/19 04:38 Additional Labs: Accuchecks 11/02/19 11/01/19 10:39 19:49 POC Glucose 104 96 Radiology Reviewed by me: Yes EKG Reviewed by me: Yes Hospitalist ROS - Review of Systems ENT: denies: ear pain, ear discharge, nose pain, nose discharge, nose congestion , mouth pain, mouth swelling, throat pain, throat swelling, other Respiratory: denies: cough, dry, shortness of breath, hemoptysis, SOB with excertion, pleuritic pain, sputum, wheezing, other Cardiovascular: denies: chest pain, palpitations, orthopnea, paroxysmal noc. dyspnea, edema, light headedness, other Gastrointestinal: denies: nausea, vomiting, abdominal pain, diarrhea, constipation, melena, hematochezia, other Genitourinary: denies: dysuria, frequency, incontinence, hematuria, retention, other Musculoskeletal: denies: neck pain, shoulder pain, arm pain, back pain, hand pain, leg pain, foot pain, other - Medication Medications: Active Medications Generic Name Dose Route Start Last Admin Trade Name Freq PRN Reason Stop Dose Admin Aspirin 325 mg 11/02/19 09:00 11/02/19 10:33 Ecotrin PO 325 mg DAILY LEIDY Administration - Exam General Appearance: NAD, awake alert Eye: PERRL, anicteric sclera ENT: normocephalic atraumatic, no oropharyngeal lesions Neck: supple, symmetric, no JVD, no thyromegaly Heart: RRR, no murmur, no gallops, no rubs Respiratory: CTAB, no wheezes, no rales, no ronchi Gastrointestinal: soft, non-tender, non-distended, normal bowel sounds Extremities: no cyanosis, no clubbing, no edema Skin: normal turgor, no lesions Neurological: no focal deficits Musculoskeletal: normal tone, normal strength Psychiatric: normal affect, normal behavior Hosp A/P (1) Seizure Code(s): R56.9 - UNSPECIFIED CONVULSIONS Status: Acute (2) Alcohol abuse Code(s): F10.10 - ALCOHOL ABUSE, UNCOMPLICATED Status: Chronic (3) Dyslipidemia Code(s): E78.5 - HYPERLIPIDEMIA, UNSPECIFIED Status: Chronic (4) HTN (hypertension) Code(s): I10 - ESSENTIAL (PRIMARY) HYPERTENSION Status: Chronic Qualifiers: Hypertension type: essential hypertension Qualified Code(s): I10 - Essential (primary) hypertension (5) Tobacco abuse Code(s): Z72.0 - TOBACCO USE Status: Chronic (6) H/O: CVA (cerebrovascular accident) Code(s): Z86.73 - PRSNL HX OF TIA (TIA), AND CEREB INFRC W/O RESID DEFICITS Status: Chronic - Plan old records reviewed/req neurology consulted for suspected post cva seizure will reduce his BP medication as his BP runs low medication reviewed continue symptomatic care
[2019-11-02] MEDS ORDERED: levETIRAcetam 500 MG TAB PO SCH (18:15)
[2019-11-02] MEDS: Carvedilol 3.125 MG TAB PO SCH (18:36)
[2019-11-02 18:43] VITALS: BMI 21.2
--- NOTE | 2019-11-02 19:47 | PDOC.EVN ---
Event Note - Event Note Event Note: Patient reports failed statin therapy outpatient, makes him feel terrible. He has zetia prescription from his PCP that he is supposed to be taking as home medications. Will stop statin. Nurse to pass on information to dayshift nurse.
--- NOTE | 2019-11-02 20:33 | PRG ---
DATE OF SERVICE: 11/02/2019 CONSULTING PHYSICIAN: Hospitalist Service. HISTORY OF PRESENT ILLNESS: Mr. Carballo came in with new complaints of episodic rhythmic left hand movement and drooling. These episodes have recurred apparently several times. He had an MRI and CT scan of the brain in the emergency room. There was some residual encephalomalacia in the left MCA territory from his prior stroke, but there was no evidence of acute event. Given his symptomatology, it appears he is having focal seizure activity as a source of his current complaints. I have recommended Keppra 500 mg twice a day. He can be transferred back to a rehab facility. Job ID: [id number]
[2019-11-02] MEDS: levETIRAcetam 500 MG TAB PO SCH (20:53)
[2019-11-02] MEDS ORDERED: Atorvastatin Calcium 40 MG TAB PO SCH ×2 (21:00)
[2019-11-02] MEDS ORDERED: ALPRAZolam 0.25 MG TAB PO PRN (23:29)
[2019-11-03 07:55] VITALS: BP 121/72; TEMP 98.4
[2019-11-03] MEDS: Carvedilol 3.125 MG TAB PO SCH (08:22)
[2019-11-03] MEDS: Aspirin 325 mg Enteric Coated Tablet PO SCH (08:22)
[2019-11-03] MEDS: levETIRAcetam 500 MG TAB PO SCH (08:22)
[2019-11-03] MEDS ORDERED: Hydrochlorothiazide 25 MG TAB PO SCH (09:00)
[2019-11-03] MEDS ORDERED: Amlodipine 10 MG TAB PO SCH (09:00)
--- NOTE | 2019-11-03 11:05 | DIS ---
DATE OF ADMISSION: 11/01/2019 DATE OF DISCHARGE: 11/03/2019 PRIMARY CARE PHYSICIAN: Dr. Susie Hernandez. DISCHARGE DISPOSITION: [facility]. PRIMARY DISCHARGE DIAGNOSIS: Post CVA seizure. SECONDARY DISCHARGE DIAGNOSES: 1. Tobacco abuse disorder. 2. Hypertension. 3. History of cerebrovascular accident. 4. Dyslipidemia. 5. Hypertension. 6. Alcohol abuse. PRIMARY PROCEDURE/OPERATION: None. RADIOLOGICAL INVESTIGATION: CT brain showed no acute process. Encephalomalacia and gliosis in left MCA distribution. MRI brain also did not show any acute process. SIGNIFICANT LABORATORY DATA: WBC 9.6, hemoglobin 12.1, platelet 331. INR 1.1. Sodium 139, potassium 3.2, creatinine 1.13. LDL 61. Urinalysis normal. DISCHARGE MEDICATIONS: 1. Tylenol 650 mg q.4 hourly p.r.n. 2. Aspirin 81 mg daily. 3. Lipitor 40 mg at bedtime. 4. Coreg 3.125 mg b.i.d. 5. Keppra 500 mg p.o. b.i.d. 6. Colace 100 mg b.i.d. 7. Nicotine patch as directed. CONTRAINDICATION: None. CODE STATUS: Full code. INPATIENT HEATING FIXTURE TENDER: Dr. Kaleb Foote, Neurology. TEST RESULT PENDING ON DISCHARGE: None. ALLERGIES: NO KNOWN DRUG ALLERGIES. DISCHARGE PLAN: Post hospital, the patient is discharged back to [facility]. Subsequently, the patient will follow up with primary care physician. HOSPITAL COURSE: A 49-year-old male, who was admitted by Dr. Sainz. Please see his H and P for further details. The patient was having right-sided weakness which he was present before, but slightly increased, and the patient was also having some weird seizure-like activity. The patient had CT brain which was not showing any acute process. MRI brain did not show any acute process. The patient had a couple of times seizure-like activity while in hospital. Neurology was consulted and recommended Keppra. On discharge, the patient continued all previous medication. His blood pressure was running on lower side while in hospital and that is why we did medication adjustment. The patient is overall stable. He is back to his baseline level. He will follow up with primary care physician at group home. Paperwork for discharge done. Discharge medication reconciliation done. PHYSICAL EXAMINATION: VITAL SIGNS: Currently, temperature 98.4, pulse 61, blood pressure 121/72, respiratory rate 15, saturation 100% on room air, weight 143 pounds. GENERAL: The patient is currently alert, awake, in no acute distress. HEAD: Normocephalic and atraumatic. EYES: Pupils round and reactive to light. Extraocular muscles intact. ENT: Oropharynx within normal limits. Moist mucous membranes. No oral lesion. No pharyngeal erythema. No exudate. NECK: Supple. No JVD. No meningeal signs of irritation. LUNGS: Clear to auscultation without any rhonchi or rales. CARDIAC: S1, S2 regular. No murmur. No gallop. No rub. ABDOMEN: Soft. Benign without any tenderness. EXTREMITIES: No edema. NEUROLOGIC: Nonfocal examination. DISCHARGE CONDITION: Overall, the patient is medically stable for discharge today. Job ID: [id number]
--- NOTE | 2019-11-12 13:29 | EKG ---
Test Reason : AB PAIN Blood Pressure : / mmHG Vent. Rate : 074 BPM Atrial Rate : 074 BPM P-R Int : 138 ms QRS Dur : 090 ms QT Int : 406 ms P-R-T Axes : 056 041 062 degrees QTc Int : 450 ms Normal sinus rhythm Minimal voltage criteria for LVH, may be normal variant Nonspecific T wave abnormality Abnormal ECG Confirmed by SHAHANA CORREIA DO ([id number]), greeting card editor GEORGIANA CISNEROS ([id number]) on 11/12/2019 1:28:58 PM Referred By: Confirmed By:SHAHANA CORREIA DO
== END 2019-11-03 10:13 ==
LOC: ERS 09:31 → ERHOLD 13:00 → 2SE 18:02
PROVIDERS: ADMIT Internal Medicine; ATTEND Internal Medicine
DX: R56.9 Unspecified convulsions (principal); R53.1 Weakness; F17.210 Nicotine dependence, cigarettes, uncomplicated; I10 Essential (primary) hypertension; I69.398 Other sequelae of cerebral infarction; G93.89 Other specified disorders of brain; E78.5 Hyperlipidemia, unspecified; F10.10 Alcohol abuse, uncomplicated; Z79.899 Other long term (current) drug therapy
CPT/HCPCS: 36415; 36416; 70450; 70551; 80048; 80053; 80061; 81001; 83735; 85025; 85610; 85730; 93005; G0378

== ENCOUNTER 2020-01-07 14:14 | Emergency (ER) | payer SELFPAY ==
[2020-01-07 15:02] LABS: Bilirubin Negative (Negative); Blood, Urine Negative (Negative); Clarity Clear (Clear); Glucose, Urine (Dipstick) Normal (Negative); Leukocyte Negative Leu/uL (Negative); Nitrite Negative (Negative); Protein, Urine (Dipstick) Negative (Neg-Trace); Urobilinogen Normal mg/dL (Less than 2)
[2020-01-07] MEDS ORDERED: levETIRAcetam 500 MG/100 ML PREMIX BAG ONE (15:08)
--- NOTE | 2020-01-07 15:14 | CT ---
CT HEAD WITHOUT IV CONTRAST COMPARISON: 11/01/2019 HISTORY: Seizure. Reported multiple seizures today. TECHNIQUE: Axial CT imaging at 5 mm intervals from vertex through skull base without contrast FINDINGS: Stable area of encephalomalacia is again seen in the left temporal parietal lobe is again seen likely due to remote area of infarction the dislocation of the left middle cerebral artery. Minimal scattered low-density areas are seen in the periventricular white matter bilaterally which are nonspe cific but likely reflective of mild chronic small vessel ischemic changes. Stable small low-density focus in the left el is present likely due to remote lacunar infarction. There is no evidence of an acute infarction, hemorrhage, mass effect, or midline shift. The ventricular system is normal in size, shape, and position. Visualized paranasal sinuses are clear. Osseous structures appear intact. IMPRESSION: 1. No acute intracranial abnormality demonstrated. 2. Stable area of encephalomalacia related to remote infarction in the distribution of the left middl e cerebral artery.
[2020-01-07 15:38] LABS: #Basophils 0.1 thou/uL (0.0-0.2); #Eosinphils 0.2 thou/uL (0.0-0.7); #Lymphocytes 2.1 thou/uL (1.20-3.40); #Monocytes 0.9 thou/uL (0.11-0.59); #Neutrophils 5.6 thou/uL (1.40-6.50); %Basophils 1.1 % (0.0-1.0); %Eosinophils 1.9 % (0.0-10.0); %Lymphocytes 23.8 % (21.0-51.0); %Monocytes 10.5 % (0.0-10.0); %Neutrophils 62.7 % (42.0-75.0); Hemoglobin 13.6 g/dL (14.0-18.0); Mean Corpuscular HGB CONC 31.5 g/dL (32.0-36.0); Mean Corpuscular Hemoglobin 29.4 pg (27.0-31.0); Mean Corpuscular Volume 93.5 fL (78.0-98.0); Mean Platelet Volume 7.8 fL (7.4-10.4); Platelet Count 250 thou/uL (130-400); White Blood Cell (WBC) Count 8.9 thou/uL (4.8-10.8)
[2020-01-07 15:59] LABS: ALT (SGPT) 18 U/L (8-55); AST (SGOT) 18 U/L (5-34); Albumin 3.9 g/dL (3.5-5.0); Alkaline Phosphatase 56 U/L (40-110); Anion Gap 11 mmol/L (10-20); BUN (Urea Nitrogen) 11 mg/dL (8.9-20.6); Bilirubin, Total 0.4 mg/dL (0.2-1.2); Calc. Creatinine Clearance 0 mL/min (70-130); Calcium 9.7 mg/dL (7.8-10.44); Carbon Dioxide 29 mmol/L (22-29); Chloride 106 mmol/L (98-107); Estimated GFR-MDRD 51; Globulin 3.3 g/dL (2.4-3.5); Glucose 92 mg/dL (70-105); Potassium 4.1 mmol/L (3.5-5.1); Protein, Total 7.2 g/dL (6.0-8.3); Sodium 142 mmol/L (136-145)
== END 2020-01-07 17:22 ==
LOC: ERS 14:14
DX: R56.9 Unspecified convulsions (principal); I10 Essential (primary) hypertension; E78.5 Hyperlipidemia, unspecified; Z86.73 Personal history of transient ischemic attack (TIA), and cerebral infarction without residual deficits; F17.210 Nicotine dependence, cigarettes, uncomplicated
CPT/HCPCS: 36415; 70450; 80053; 81003; 84146; 85025; 94760; 96365; J1953

== ENCOUNTER 2020-09-30 13:42 | Emergency (ER) | payer OTHER, SELFPAY | END 2020-09-30 18:19 | disposition home or self-care (01) | LOC: ERS 13:42 | DX: M62.838 Other muscle spasm (principal); I10 Essential (primary) hypertension; E78.5 Hyperlipidemia, unspecified; F17.210 Nicotine dependence, cigarettes, uncomplicated; Z86.73 Personal history of transient ischemic attack (TIA), and cerebral infarction without residual deficits; Z79.899 Other long term (current) drug therapy | CPT/HCPCS: 99283 ==

== ENCOUNTER 2025-05-12 10:24 | Emergency (ER) | payer MEDICARE, OTHER ==
[2025-05-12 11:24] LABS: #Basophils Less than 0.03 10x3/uL (0.0-0.2); #Eosinophils 0.08 10x3/uL (0.0-0.7); #Monocytes 1.10 10x3/uL (0.11-0.59); #Neutrophils 5.86 10x3/uL (1.40-6.50); %Basophils 0.2 % (0.0-1.0); %Eosinophils 0.8 % (0.0-10.0); %Lymphocytes 27.3 % (21.0-51.0); %Monocytes 11.3 % (0.0-10.0); %Neutrophils 60.3 % (42.0-75.0); Hematocrit 47.3 % (42.0-52.0); Hemoglobin 15.2 g/dL (14.0-18.0); Mean Corpuscular Hemoglobin 27.9 pg (27.0-31.0); Mean Corpuscular Volume 86.9 fL (78.0-98.0); Platelet Count 258 10x3/uL (130-400); Red Blood Cell (RBC) Count 5.44 mill/uL (4.70-6.10); White Blood Cell (WBC) Count 9.73 10x3/uL (4.8-10.8)
[2025-05-12 11:52] LABS: ALT (SGPT) 13 U/L (Less than 45); AST (SGOT) 24 U/L (11-34); Albumin 3.8 g/dL (3.1-4.5); Alkaline Phosphatase 80 U/L (40-110); Anion Gap 14 mmol/L (10-20); BUN (Urea Nitrogen) 7 mg/dL (8.4-25.7); Bilirubin, Total 0.6 mg/dL (0.3-1.2); CK (CPK) 146 U/L (30-200); Calc. Creatinine Clearance 0 mL/min (70-130); Calcium 9.7 mg/dL (7.8-10.44); Carbon Dioxide 25 mmol/L (22-29); Chloride 106 mmol/L (98-107); Globulin 3.6 g/dL (2.4-3.5); Glucose 80 mg/dL (70-105); Potassium 4.1 mmol/L (3.5-5.1); Sodium 141 mmol/L (136-145)
== END 2025-05-12 13:37 | disposition home or self-care (01) ==
LOC: ERS 10:24
DX: M79.661 Pain in right lower leg (principal); I10 Essential (primary) hypertension; F17.290 Nicotine dependence, other tobacco product, uncomplicated; R29.703 NIHSS score 3; Z79.82 Long term (current) use of aspirin; Z86.73 Personal history of transient ischemic attack (TIA), and cerebral infarction without residual deficits; Z79.899 Other long term (current) drug therapy; W19.XXXA Unspecified fall, initial encounter
CPT/HCPCS: 36415; 70450; 80053; 82550; 85025; 93005